=== PATIENT | female | born 1945 | race Caucasian/White ===

== ENCOUNTER → 2016-06-18 | Outpatient (CLI) | payer OTHER | END | disposition home or self-care (01) | LOC: C.LABPVFM 09:37 | PROVIDERS: ATTEND Family Medicine | DX: R39.9 Unspecified symptoms and signs involving the genitourinary system (principal) ==

== ENCOUNTER → 2017-03-22 | Outpatient (CLI) | payer OTHER ==
--- NOTE | 2017-03-22 15:09 | MAMMOGRAPHY REPORT ---
BILATERAL DIGITAL SCREENING MAMMOGRAM TOMOSYNTHESIS WITH CAD: 03/22/2017 CLINICAL HISTORY: Routine screening. Patient has no complaints. TECHNIQUE: Breast tomosynthesis in addition to standard 2D mammography was performed. Current study was also evaluated with a Computer Aided Detection (CAD) system. COMPARISON: Comparison is made to exams dated: 03/02/2016 mammogram, 02/26/2015 mammogram, 4 mammogram, 02/17/2013 mammogram - [facility], and 08/27/2006 mammogram. BREAST COMPOSITION: The tissue of both breasts is almost entirely fatty. FINDINGS: The parenchymal pattern is similar to prior mammograms. There are a few benign rim calcif ications and minimal vascular calcification in the breasts. No developing mass, architectural distor tion or cluster of suspicious microcalcifications is seen. IMPRESSION: ACR BI-RADS CATEGORY 2: BENIGN There is no mammographic evidence of malignancy. A 1 year screening mammogram is recommended. The pa tient will receive written notification of the results. Approximately 10% of breast cancers are not detected with mammography. A negative mammographic report should not delay biopsy if a clinically suggestive mass is present. Olga Solano M.D. ay/:03/22/2017 14:36:43 [employer] Crewmember: Omaira LOWERY(Vanessa)(M), [facility] letter sent: Normal 1/2 BI-RADS Code: ACR BI-RADS Category 2: Benign
== END | disposition home or self-care (01) ==
LOC: C.MAMM 09:14
PROVIDERS: ATTEND Family Medicine
DX: Z12.31 Encounter for screening mammogram for malignant neoplasm of breast (principal)

== ENCOUNTER → 2017-04-05 | Outpatient (CLI) | payer OTHER ==
[2017-04-05 12:46] LABS: BLOOD UREA NITROGEN 21 mg/dl (7-18); CALCIUM 9.2 mg/dl (8.5-10.1); CARBON DIOXIDE 34 mmol/L (21-32); CREATININE 0.75 mg/dl (0.60-1.20); GLUCOSE 115 mg/dl (70-99); POTASSIUM 4.8 mmol/L (3.5-5.1); SODIUM 137 mmol/L (136-145)
[2017-04-05 12:49] LABS: CHOLESTEROL 249 mg/dl (0-200); LDL CHOLESTEROL CALCULATED 152 mg/dl
== END | disposition home or self-care (01) ==
LOC: C.LABPVFM 17:45
PROVIDERS: ATTEND Nurse Practitioner
DX: I10 Essential (primary) hypertension (principal); E78.5 Hyperlipidemia, unspecified

== ENCOUNTER 2019-08-14 13:08 | Observation (INO) ==
[2019-08-14] MEDS ORDERED: OPTIRAY 320 125ml IV PRN (13:39)
[2019-08-14 13:50] LABS: Basophils # (auto) 0.04 K/uL (0-0.2); Basophils % (auto) 0.4 %; Eosinophils # (auto) 0.26 K/uL (0-0.5); Eosinophils % (auto) 2.8 %; Hematocrit (blood only) 47.2 % (37-47); Hemoglobin 14.8 g/dL (12.0-16.0); Immature Granulocytes # (auto) 0.03 K/uL (0.00-0.02); Immature Granulocytes % (auto) 0.3 %; Lymphocytes # (auto) 3.65 K/uL (1.2-3.4); Lymphocytes % (auto) 39.3 %; Mean Corpuscular Hemoglobin 30.5 pg (25-34); Mean Corpuscular Hgb Conc 31.4 g/dL (32-36); Mean Corpuscular Volume 97.3 fL (80-100); Mean Platelet Volume 11.2 fL (7.4-10.4); Monocytes # (auto) 0.88 K/uL (0.11-0.59); Monocytes % (auto) 9.5 %; Neutrophils # (auto) 4.42 K/uL (1.4-6.5); Neutrophils % (auto) 47.7 %; Platelet Count 370 K/uL (130-400); RDW Coefficient of Variation 13.2 % (11.5-14.5); Red Blood Count 4.85 M/uL (4.2-5.4); White Blood Count 9.28 K/uL (4.8-10.8)
--- NOTE | 2019-08-14 13:52 | CT Scan Report ---
CT head/brain wo con CLINICAL HISTORY: Stroke evaluation COMPARISON STUDY: No previous studies for comparison. TECHNIQUE: Axial CT of the brain is performed from the vertex to the skull base. IV contrast was not administered for this examination. A dose lowering technique was utilized adhering to the principles of ALARA. CT DOSE: FINDINGS: No intra or extra-axial mass lesions are visualized. There is no CT evidence of acute cortical infarc tion. There is no evidence of midline shift. There is no acute hemorrhage. No calvarial fractures ar e visualized. There are scattered white matter hypodensities likely on a small vessel basis. There is no evidence of pathologic ventricular dilatation. There is no evidence of acute sinusitis. There is a left maxillary sinus inflammatory polyp/retention cyst. IMPRESSION: No acute intracranial findings ACT 112: Negative or not required by law. Electronically signed by: Rohit Morales M.D. 08/14/2019 1:50 PM
--- NOTE | 2019-08-14 13:55 | XRay Report ---
XR chest 1V portable CLINICAL HISTORY: aphasia dyspnea COMPARISON STUDY: No previous studies for comparison. FINDINGS: Moderate cardiomegaly., Pulmonary vasculature. Potential nodular densities in the left uppe r as well as left midlung region. IMPRESSION: 1. Mild congestive heart failure. 2. Potential superimposed nodular densities lateral aspect left upper lobe and left midlung. 3. CT study of the chest is recommended to exclude any possibility of metastatic change. ACT 112: Negative or not required by law. The above report was generated using voice recognition software. It may contain grammatical, syntax or spelling errors. Electronically signed by: Serafin Coughlin M.D. 08/14/2019 1:54 PM
--- NOTE | 2019-08-14 13:56 | CT Scan Report ---
CT angio head w con CLINICAL HISTORY: Stroke evaluation Aphasia, HEADACHE TECHNIQUE: CT angiography of the head was performed in a dynamic helical fashion during intravenous a dministration of 120 cc of Optiray 320. MIP imaging was performed. A dose lowering technique was util ized adhering to the principles of ALARA. CT DOSE: COMPARISON STUDY: No previous studies for comparison. FINDINGS: There are no lesion suspicious for aneurysm. There are no major intracranial branch occlusi ons. The dural venous sinuses appear patent. There are mild diffuse atheromatous changes within the r ight posterior cerebral artery, and minimal atheromatous irregularity of the right A1 segment. IMPRESSION: 1. Minor intracranial atheromatous changes. 2. No evidence of major intracranial branch occlusion 3. No evidence of aneurysm ACT 112: Negative or not required by law. Electronically signed by: Rohit Morales M.D. 08/14/2019 1:55 PM
--- NOTE | 2019-08-14 14:02 | CT Scan Report ---
CT angio neck with con CLINICAL HISTORY: Stroke evaluation aphasia COMPARISON STUDY: No previous studies for comparison. TECHNIQUE: CT angiography was performed from the aortic arch to the skull base. MIP imaging was perfo rmed. The patient was scanned in a dynamic helical fashion during intravenous administration of 120 c c of Optiray 320. A dose lowering technique was utilized adhering to the principles of ALARA. CT DOSE: 1197.51 mGy.cm Technique: CT angiogram of the carotid and vertebral arteries was obtained using intravenous contrast and 3-D reconstruction. NASCET criteria was utilized. Findings: The right carotid revealed no evidence of aneurysm and no evidence of dissection. There is no evidenc e of hemodynamic significant stenosis. The left carotid revealed no evidence of hemodynamic significant stenosis. There is no evidence of an eurysm. There is no evidence of dissection. Note is made of a retropharyngeal course of both internal carotids. There is no evidence of hemodynamically significant vertebral stenosis. There is no evidence of verte bral dissection. IMPRESSION: No evidence of hemodynamically significant carotid or vertebral artery stenosis. No evidence of disse ction. ACT 112: Negative or not required by law. Electronically signed by: Rohit Morales M.D. 08/14/2019 2:01 PM
[2019-08-14 14:04] LABS: Partial Thromboplastin Ratio 1.1; Partial Thromboplastin Time 29.5 Seconds (21.0-31.0); Prothrombin Time 10.2 Seconds (9.0-12.0)
[2019-08-14 14:12] LABS: Alanine Aminotransferase 26 U/L (12-78); Albumin Level 3.8 gm/dl (3.4-5.0); Aspartate Aminotransferase 20 U/L (15-37); BUN Creatinine Ratio 24.6 (10-20); Blood Urea Nitrogen 21 mg/dl (7-18); Calcium 9.1 mg/dl (8.5-10.1); Carbon Dioxide 34 mmol/L (21-32); Chloride 103 mmol/L (98-107); Creatinine Clr Calc Pharmacy 68.3 ml/min; Est GFR (African American) 76.6; Est GFR (Non-African American) 66.1; Glucose 97 mg/dl (70-99); Magnesium 2.3 mg/dl (1.8-2.4); Potassium 4.8 mmol/L (3.5-5.1); Sodium 138 mmol/L (136-145)
[2019-08-14 14:16] LABS: Albumin Globulin Ratio 0.9 (0.9-2); Alkaline Phosphatase 106 U/L (45-117); Bilirubin,Total 0.2 mg/dl (0.2-1); Globulin 4.2 gm/dl (2.5-4.0); Troponin I < 0.015 ng/ml (0-0.045)
[2019-08-14] MEDS ORDERED: LABETALOL HCL IV 5 MG/ML 20ML IV STA (14:17)
[2019-08-14] MEDS ORDERED: ASPIRIN CHEW 324 MG PO STA (14:17)
--- NOTE | 2019-08-14 14:44 | History & Physical Report ---
Date of Service August 14, 2019 Assessment & Plan (1) Stroke-like episode: Patient with unilateral findings consistent with possible atypical migraine versus stroke. Patient had CT angiogram of her head neck and regular plain CT scan of the brain. These were negative for any abnormalities. Patient was given antihypertensive medications in the ER remains with a headache she will be observed in our facility for an MRI scan a echocardiogram and will have some pain control attempting to help her headache.Neurology consult be undertaken Patient with hemoglobin A1c and cholesterol panel done in the morning however patient says she typically is not a pill taker and may not be interested in Cholesterol lowering medications (2) Depression: Patient continues on Celexa (3) DVT prophylaxis: Lovenox for DVT prevention History of Present Illness Primary Care Provider: Faye Hanson MD This patient was in her usual state of health up until this morning when she developed a headache around 9 AM that it was fairly significant. The patient then states she had some Left eye bright white lines only present in her left eye Not present In the right eye to the left part of her visual field. Patient states she took a phone call from a local bank where she was having difficulty with jumbling of her words, Asked her to take her to her primary care office where they phoned first and then were directed to the hospital.Patient denies having any changes in gross motor strength or fine motor skills such as what would be required to dress herself to come to the hospital.The patient has resolution of the jumbling of the words in the visual field changes however she still has a significant headache. In the emergency department she had a stroke alert called at which time thrombolytics were not recommended due to timing and the patient was given some antihypertensives of labetalol. Initial imaging of her brain was without regard for hemorrhage or stroke vascular abnormalities or dissection of any kind. The patient was given an aspirin. Patient has a family history of stroke in her mother, she has known bad cholesterol but is "not a pill taker" and is no tobacco history.Contrary to her med rec she does not take metoprolol for hypertension Allergies Allergy/AdvReac Type Severity Reaction Status Date / Time No Known Drug Allergies Allergy Verified 08/14/19 13:58 Home Medications Home Medications Medication Instructions Recorded Confirmed Type omega 4-fhu-euj-fish oil [Fish Oil] 1 cap PO QAM 03/04/19 06/01/20 History metoprolol succinate 25 mg capsule 25 mg PO DAILY #90 ea 04/05/19 08/14/19 Rx sprinkle, ext. release 24 hr citalopram [Celexa] 40 mg PO QAM 08/14/19 08/14/19 History ibuprofen-diphenhydramine cit 2 cap PO HS 08/14/19 08/14/19 History [Ibuprofen PM] Past Med/Surg History Medical History (Updated 08/14/19 @ 15:24 by Pepe Mckeon MD) Abnormal nasal septum Depression Obesity Surgical History History of cataract surgery BL History of exploratory laparotomy History of pancreatic surgery had turmor removed History of total abdominal hysterectomy with removal of ovary(s) Hx of bladder repair surgery Hx of hysterectomy ovaries remain Hx of varicose vein ligation and stripping both legs Family History (Updated 07/07/19 @ 08:51 by Larry Rai) Mother Stroke Myocardial infarction Father Stroke Denies family history of Ovarian cancer Prostate cancer Breast cancer Colorectal cancer Social History (Updated 04/05/19 @ 13:08 by Mari Reynoso) Preferred Language: Tajik Communication Ability: Effective Combat Systems Officer Required: No Beliefs That Will Affect Care: None Current Living Situation: Spouse current occupational status: retired Other Information That Helps Us Care for You: No Feels Safe at Home: Yes Safety Concerns: Feels Safe At This Time Smoking Status: Never smoker Second Hand Exposure: No ; Hx Alcohol Use: No Hx Substance Use: No caffeine: Yes (coffee) Dental Care, Regularly: Yes Physical Activity Frequency: Does not Exercise Seatbelt Use: always Sunscreen Use: No Review of Systems Review of Systems: Mild distress and fatigue no headache, blurry or double vision no speech or swallowing issues no chest pain, pressure or palpitations no shortness of breath, cough or wheezes no abdominal pain, nausea or vomiting, diarrhea or constipation no dysuria, hematuria or frequency no focal joint pain or swelling no back pain, CVA tenderness or radicular pain no bruising, bleeding or rashes no focal signs of weakness or numbness or altered sensation no complaints or anxiety or depression Physical Exam Physical Exam: The patient appeared well nourished and normally developed. Vital signs as documented. Head exam is normocephalic atraumatic no scleral icterus Neck is without JVD, thyromegaly, or carotid bruits. Lungs are clear to auscultation, no focal loss of breath sounds Cardiac exam, Rhythm is regular.. No murmurs, rubs or gallops. Abdominal exam reveals normal bowel sounds, soft non tender, no masses Extremities are nonedematous and both pedal pulses are normal. Neurologic exam is alert and oriented, no focal loss of strength or sensation Skin is without bruises or rashes Psychologically is without concerns for anxiety or depression Results & Data Results & Data ([facility]) Vital Signs (Past 12 Hours) Vital Signs 08/15/2019 CT head impression No acute intracranial findings CT angiogram head neck Impression Minor intracranial atheromatous change.No evidence of major intracranial branch occlusion no evidence of aneurysm, Neck angiogram shows no evidence of hemodynamically significant carotid or vertebral artery stenosis or dissection EKG shows normal sinus rhythm, Without any changes Temp Pulse Resp BP Pulse Ox 08/14/19 14:30 61 17 177/98 H 95 08/14/19 14:10 64 21 193/91 H 94 08/14/19 14:01 70 20 223/102 H 91 08/14/19 13:53 77 26 H 207/94 H 94 08/14/19 13:19 97.9 F 68 18 210/103 H 93 PG Care Time/CCT Total # of Minutes Spent Total Time Spent with Patient: Total time spent is greater than 50% in coordination of care (as documented) at patient's floor/unit and/or counseling patient: Coding Level of Care Code 78044 OBS Care - Level 3 Diagnoses Stroke-like episode I63.9 Depression F32.9 DVT prophylaxis Z29.9
--- NOTE | 2019-08-14 15:18 | Emergency Department Note ---
Impression & Plan Transient cerebral ischemia, Stroke-like episode, Hypertension ED Provider Note NAME: RONNIE JONES AGE: 73 SEX: F : 1945 ARRIVES VIA: Walk-In INFORMANT: Patient ED PROVIDER(S): Janak Vazquez DO CHIEF COMPLAINT: Headache and aphasia HPI: Patient is a 73-year-old female presents the ER for severe headache which started around 9 AM. It has been persistent since then. She has been seeing white lines. Following this around 11 AM for about 1/2-hour she was unable to talk. She denies any weakness or numbness in her arms or legs. No other symptoms. She does note that she has been mildly short of breath for the past month. She notes that all of her symptoms have gone away at this time with the exception of the headache. Headache is located in her temples. She notes that light does make the headache slightly worse. ROS: See above HPI for pertinent positives & negatives. A total of 10 systems reviewed and were otherwise negative. PAST MEDICAL HISTORY:See Below PAST SURGICAL HISTORY:See Below FAMILY HISTORY:See Below SOCIAL HISTORY:See Below HOME MEDICATIONS:See Below ALLERGIES:See Below VITALS:See Below PHYSICAL EXAMINATION: GENERAL: Sitting up in bed, alert, well appearing, well nourished, no distress, non-toxic EYE EXAM: normal conjunctiva. PERRL and EOM's intact. OROPHARYNX: no exudate, no erythema, lips, buccal mucosa, and tongue normal and mucous membranes are moist NECK: supple, no nuchal rigidity, no adenopathy, non-tender LUNGS: Clear to auscultation. Normal chest wall mechanics HEART: no murmurs, S1 normal and S2 normal ABDOMEN: abdomen soft, non-tender, normo-active bowel sounds, no masses, no rebound or guarding. BACK: Back is symmetrical on inspection and there is no deformity, no midline tenderness, no CVA tenderness. SKIN: no rashes and no bruising UPPER EXTREMITIES: upper extremities are grossly normal. LOWER EXTREMITIES: No pitting edema. NEURO EXAM: Normal sensorium, cranial nerves II-XII intact, normal speech, no weakness of arms, no weakness of legs. No drift. Finger to nose intact. Gross sensation intact. MEDICAL DECISION MAKING: Patient is a 73-year-old female that presents the ER for headache. Symptoms started around 9 AM this morning with a severe headache and some white line throughout her vision. At 11 she was unable to talk which lasted for about 1/2- hour and then resolved. Upon presentation neurologic exam was completely intact. Blood pressure was 210. Stroke alert was called. Discussed with the [facility] tele-stroke neurologist. Patient is currently out of the window and they recommended aspirin and fluids admission as well as treatment of her high blood pressure at this time as long as the CT angios were clean. Labs show no significant leukocytosis or anemia. INR was unremarkable. BMP with slightly elevated BUN. LFTs bilirubin and troponin were negative. CT of the head as well as CT Angio of the head and neck were fairly unremarkable. Patient was given IV labetalol. Aspirin and fluids. Blood pressure was lowered from 210 to 170. Patient was updated at bedside and admitted to the hospital for possible TIA versus hypertensive emergency. Triage Nursing notes reviewed. Prior medical records reviewed Vital Signs: reviewed and remarkable for hypertension Differential diagnosis: Differential Diagnosis includes but is not limited to ischemic Stroke, hemorrhagic stroke, bells palsy, mass, neoplasm, migraine headache, seizure, subarachnoid hemorrhage, TIA, and transient global amnesia. ER treatment provided: See below Diagnostics interpreted by me: ECG: Sinus rhythm rate 73 Normal axis No PVCs DWI in the septal leads Normal QTC Cardiac Monitoring: An order was placed for continuous cardiac monitoring. The monitor shows a rate of 68 with sinus rhythm. Laboratory studies: As stated above and show below. Imaging studies: Portable AP upright 1 view of the chest shows congestive changes. CT of the head was negative. CT angios of the head and neck showed no large vessel stenosis. Consultation(s): Discussed with hospitalist Dr. aDnnie James ED COURSE: Procedures: none Critical Care: I have personally spent 32 minutes of critical care time in the direct management of this patient. This includes bedside care, interpretation of diagnostic studies, and testing, discussion with consultants, patient, and family members, and other required patient management activities. This 32 minutes is in excess of all separately billable procedures. Past Med/Surg History Medical History (Updated 08/14/19 @ 16:50 by Kay Alegria MD) Abnormal nasal septum Depression Obesity Surgical History History of cataract surgery BL History of exploratory laparotomy History of pancreatic surgery had turmor removed History of total abdominal hysterectomy with removal of ovary(s) Hx of bladder repair surgery Hx of hysterectomy ovaries remain Hx of varicose vein ligation and stripping both legs Family History (Updated 07/07/19 @ 08:51 by Larry Rai) Mother Stroke Myocardial infarction Father Stroke Denies family history of Ovarian cancer Prostate cancer Breast cancer Colorectal cancer Social History (Updated 04/05/19 @ 13:08 by Mari Reynoso) Preferred Language: Bulgarian Communication Ability: Effective Staff Scientist Required: No Beliefs That Will Affect Care: None Current Living Situation: Spouse current occupational status: retired Other Information That Helps Us Care for You: No Feels Safe at Home: Yes Safety Concerns: Feels Safe At This Time Smoking Status: Never smoker Second Hand Exposure: No ; Hx Alcohol Use: No Hx Substance Use: No caffeine: Yes (coffee) Dental Care, Regularly: Yes Physical Activity Frequency: Does not Exercise Seatbelt Use: always Sunscreen Use: No Allergies Allergies Allergy/AdvReac Type Severity Reaction Status Date / Time No Known Drug Allergies Allergy Verified 08/14/19 13:58 Home Meds Home Medications Medication Instructions Recorded Confirmed omega 3-ivb-xxn-fish oil [Fish Oil] 1 cap PO QAM 05/16/18 08/14/19 citalopram [Celexa] 40 mg PO QAM 08/14/19 08/14/19 ibuprofen-diphenhydramine cit 2 cap PO HS 08/14/19 08/14/19 [Ibuprofen PM] Previous Rx's Medication Instructions Recorded metoprolol succinate 25 mg capsule 25 mg PO DAILY #90 ea 04/05/19 jose juan, ext. release 24 hr Results & Data (ED) Vital Signs Vital Signs - 24 hr 08/14/19 13:19 08/14/19 13:53 08/14/19 14:01 Temperature 36.6 C Temperature Source Oral Pulse Rate 68 77 70 Pulse Rate from SpO2 Sensor 76 69 Respiratory Rate 18 26 H 20 Respiratory Effort / Characteristics Non-Labored Spontaneous Respiratory Depth Normal Respiratory Pattern Regular Blood Pressure 210/103 H 207/94 H 223/102 H Blood Pressure Mean 138 113 150 Blood Pressure Position Sitting Pulse Oximetry 93 94 91 Oxygen Delivery Method Room Air Room Air Room Air Oxygen Flow Rate Sepsis Recent Fever Within 48 Hours No Sepsis New/Unexplained Change in Mental Status No Sepsis Action Taken by Nursing No Action Required Oxygen Flow Rate - Titration Pulse Oximetry Post Tiitration 08/14/19 14:10 08/14/19 14:30 Temperature Temperature Source Pulse Rate 64 61 Pulse Rate from SpO2 Sensor 66 Respiratory Rate 21 17 Respiratory Effort / Characteristics Respiratory Depth Respiratory Pattern Blood Pressure 193/91 H 177/98 H Blood Pressure Mean 135 134 Blood Pressure Position Pulse Oximetry 94 95 Oxygen Delivery Method Room Air Nasal Cannula Oxygen Flow Rate 2 Sepsis Recent Fever Within 48 Hours Sepsis New/Unexplained Change in Mental Status Sepsis Action Taken by Nursing Oxygen Flow Rate - Titration 2 Pulse Oximetry Post Tiitration 96 Laboratory Data Result diagrams: 08/14/19 13:38 08/14/19 13:38 Lab Results 08/14/19 08/14/19 08/14/19 Range/Units 13:33 13:38 13:38 WBC 9.28 (4.8-10.8) K/uL RBC 4.85 (4.2-5.4) M/uL Hgb 14.8 (12.0-16.0) g/dL Hct 47.2 H (37-47) % MCV 97.3 (80-100) fL MCH 30.5 (25-34) pg MCHC 31.4 L (32-36) g/dL RDW Std Deviation 47.0 H (36.4-46.3) fL RDW Coeff of Marky 13.2 (11.5-14.5) % Plt Count 370 (130-400) K/uL MPV 11.2 H (7.4-10.4) fL Immature Gran % (Auto) 0.3 % Neut % (Auto) 47.7 % Lymph % (Auto) 39.3 % [place] % (Auto) 9.5 % Eos % (Auto) 2.8 % Baso % (Auto) 0.4 % Immature Gran # (Auto) 0.03 H (0.00-0.02) K/uL Neut # (Auto) 4.42 (1.4-6.5) K/uL Lymph # (Auto) 3.65 H (1.2-3.4) K/uL [place] # (Auto) 0.88 H (0.11-0.59) K/uL Eos # (Auto) 0.26 (0-0.5) K/uL Baso # (Auto) 0.04 (0-0.2) K/uL PT 10.2 (9.0-12.0) Seconds INR 1.0 (0.9-1.1) APTT 29.5 (21.0-31.0) Seconds PTT Ratio 1.1 Sodium (136-145) mmol/L Potassium (3.5-5.1) mmol/L Chloride (98-107) mmol/L Carbon Dioxide (21-32) mmol/L Anion Gap (3-11) BUN (7-18) mg/dl Creatinine (0.6-1.2) mg/dl Est Cr Clr Drug Dosing ml/min Est GFR ( Amer) Est GFR (Non-Af Amer) BUN/Creatinine Ratio (10-20) Glucose (70-99) mg/dl POC Glucose 103 H (70-99) mg/dl Calcium (8.5-10.1) mg/dl Magnesium (1.8-2.4) mg/dl Total Bilirubin (0.2-1) mg/dl AST (15-37) U/L ALT (12-78) U/L Alkaline Phosphatase (45-117) U/L Troponin I (0-0.045) ng/ml Total Protein (6.4-8.2) gm/dl Albumin (3.4-5.0) gm/dl Globulin (2.5-4.0) gm/dl Albumin/Globulin Ratio (0.9-2) 08/14/19 Range/Units 13:38 WBC (4.8-10.8) K/uL RBC (4.2-5.4) M/uL Hgb (12.0-16.0) g/dL Hct (37-47) % MCV (80-100) fL MCH (25-34) pg MCHC (32-36) g/dL RDW Std Deviation (36.4-46.3) fL RDW Coeff of Marky (11.5-14.5) % Plt Count (130-400) K/uL MPV (7.4-10.4) fL Immature Gran % (Auto) % Neut % (Auto) % Lymph % (Auto) % [place] % (Auto) % Eos % (Auto) % Baso % (Auto) % Immature Gran # (Auto) (0.00-0.02) K/uL Neut # (Auto) (1.4-6.5) K/uL Lymph # (Auto) (1.2-3.4) K/uL [place] # (Auto) (0.11-0.59) K/uL Eos # (Auto) (0-0.5) K/uL Baso # (Auto) (0-0.2) K/uL PT (9.0-12.0) Seconds INR (0.9-1.1) APTT (21.0-31.0) Seconds PTT Ratio Sodium 138 (136-145) mmol/L Potassium 4.8 (3.5-5.1) mmol/L Chloride 103 (98-107) mmol/L Carbon Dioxide 34 H (21-32) mmol/L Anion Gap 2.0 L (3-11) BUN 21 H (7-18) mg/dl Creatinine 0.86 (0.6-1.2) mg/dl Est Cr Clr Drug Dosing 68.3 ml/min Est GFR ( Amer) 76.6 Est GFR (Non-Af Amer) 66.1 BUN/Creatinine Ratio 24.6 H (10-20) Glucose 97 (70-99) mg/dl POC Glucose (70-99) mg/dl Calcium 9.1 (8.5-10.1) mg/dl Magnesium 2.3 (1.8-2.4) mg/dl Total Bilirubin 0.2 (0.2-1) mg/dl AST 20 (15-37) U/L ALT 26 (12-78) U/L Alkaline Phosphatase 106 (45-117) U/L Troponin I < 0.015 (0-0.045) ng/ml Total Protein 8.0 (6.4-8.2) gm/dl Albumin 3.8 (3.4-5.0) gm/dl Globulin 4.2 H (2.5-4.0) gm/dl Albumin/Globulin Ratio 0.9 (0.9-2) Administered Medications Discontinued Medications Aspirin (Aspirin) 324 mg PO NOW STA Stop: 08/14/19 14:18 Last Admin: 08/14/19 14:23 Dose: 324 mg Documented by: [id number] Ioversol (Optiray 320 125ml) 120 ml IV ONCE PRN PRN Reason: Interaction Checking Stop: 08/18/19 13:38 Last Admin: 08/14/19 13:39 Dose: 120 ml Documented by: [id number] Labetalol HCl (Normodyne) 10 mg IV NOW STA Stop: 08/14/19 14:18 Last Admin: 08/14/19 14:23 Dose: 10 mg Documented by: [id number] Cosigned by: [id number] Discharge Plan Visit Data *Final* Discharge Date/Time: 08/14/19 15:41 Chief Complaint: Neuro Symptoms/Deficit Stated Complaint: COULDN'T GET WORDS TOGETHER,HEADACHE ED Provider: Janak Vazquez Discharge Problem: Transient cerebral ischemia, Stroke-like episode, Hypertension Patient Disposition: Admitted As Inpatient Discharge Instructions Interventions: ED Discharge Assessment Last Done: 08/14/19 15:41 Discharge Problem: Transient cerebral ischemia Qualifiers: Transient cerebral ischemia type: unspecified Qualified Code(s): G45.9 - Transient cerebral ischemic attack, unspecified Hypertension Qualifiers: Hypertension type: unspecified Qualified Code(s): I10 - Essential (primary) hypertension
[2019-08-14] MEDS ORDERED: ONDANSETRON INJ 2 MG/ML 2 ML VIAL IV PRN (16:04)
[2019-08-14] MEDS ORDERED: KETOROLAC TROMETHAMINE 15 MG/ML VIAL IV PRN (16:04)
[2019-08-14] MEDS ORDERED: PHARMACIST DISCHARGE MED REC CONSULT PRN (16:04)
[2019-08-14] MEDS ORDERED: cloNIDine HCL 0.1 MG TAB PO PRN (16:04)
[2019-08-14] MEDS ORDERED: ACETAMINOPHEN 325 MG TAB PO PRN (16:04)
[2019-08-14] MEDS ORDERED: ALUMINUM/MAGNESIUM SUSP 30 ML UDC PO PRN (16:04)
[2019-08-14] MEDS ORDERED: MoRPHine SULFATE 2 MG/ML CARP IV PRN (16:04)
--- NOTE | 2019-08-14 16:17 | Neurology Consultation ---
Date of Consultation August 14, 2019 Assessment & Plan (1) Hypertension: (2) Stroke-like episode: Kika Vasquez is a 73 yo woman w/ PMH of hypertension, hyperlipidemia, depression/anxiety, GERD, and h/o headaches who p/t [facility] with severe headache, transient visual change and transient word finding difficulty. # Headache a/w word finding difficulty and transient positive visual phenomenon: in setting of severe HTN, most likely HTNsive urgency (MRI pending to r/o stroke). No current neurological symptoms aside from having headache since her blood pressure has been better controlled. Headache frequency likely complicated by medication overuse headache due to frequent Tylenol and ibuprofen usage. -Can complete TIA work-up with A1c, LDL, TTE though this is less likely the cause of her presentation -Would slowly lower blood pressure over next 24 hours; defer to primary team to start alternative BP agent as HR in the 50s after being given labetalol - Serial migraine cocktails: toradol/Benadryl/compazine q8h, IVFs, and magnesium 2g IV q12h x2 doses - Consider valproic acid 500mg IV q8h if no improvement in headache - If no stroke or mass lesions noted on MRI brain, would give dexamethasone 1g IV followed by Medrol taper and advise her to discontinue further ibuprofen PM and tylenol (if BP is still an issue, could also use zyprexa 2.5mg qhs x 5 days as a cycle breaker) - MRI pending, no vessel abnormalities, including CVST noted on vessel imaging - she will need to start a daily preventative medication for her headaches given the frequency - would check B12, ESR/CRP, TSH also to r/o metabolic causes to word finding difficulty # Diffuse intra-cranial atherosclerosis: She has a history of hyperlipidemia but is not currently on any medications. -Would recommend starting atorvastatin 40 mg nightly Thank you for this interesting consult. Please call with any questions. (3) Headache: (4) Hyperlipidemia: History of Present Illness Attending Physician: Pepe Mckeon MD History of Present Illness Kika Vasquez is a 73 yo woman w/ PMH of hypertension, hyperlipidemia, depression/anxiety, GERD, and h/o headaches who p/t [facility] with severe headache, transient visual change and transient word finding difficulty. 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 She reports that she felt like her normal self when she first woke up on that around 10:30 AM, started to get a severe throbbing headache that was preceded by a brief, transient flash of light. A little bit after this headache started, she started to have word finding difficulty while she was talking on the phone and with her . She reports that she has never had something like this in the past, so she presented to the emergency department for evaluation. In terms of all headaches, she describes that she will have a headache every other day on average that is located on her vertex, is not associated with nausea/vomiting/photophobia/phonophobia, and that she will take an Aleve as needed. She does note that she takes ibuprofen PM every night to help her with sleep. Denies taking any daily medications for headache. Current headache is similar in characteristic and located in her vertex primarily with some radiation to the bitemporal region, however is more severe in intensity (usually 3-4/10 versus 9/10 today). She does note that she has had 2 other severe headaches in the last week, however neither were associated with word finding difficulty. In the ED, she was afebrile, BP 210/103, heart rate 68, satting 93% on room air. Labs notable for WBC 9.28, hemoglobin 14.8, platelets 370, INR 1.0, CMP unremarkable with BUN mildly elevated 21 and creatinine 0.86, glucose 97, calcium/magnesium within normal, troponin negative. Imaging independently reviewed. CT head shows no hemorrhage or hypodensity. CTA head and neck shows no LDL, high-grade stenosis, aneurysm; she does have a right RN GYN and mild diffuse intracranial atherosclerosis. MRI brain pending. All symptoms have resolved upon evaluation this afternoon except for residual headache. In the ED, she received labetalol 10mg IV for HTN and aspirin 324mg. Allergies Allergy/AdvReac Type Severity Reaction Status Date / Time No Known Drug Allergies Allergy Verified 08/14/19 13:58 Home Medications Home Medications Medication Instructions Recorded Confirmed Type omega 8-raj-eca-fish oil [Fish Oil] 1 cap PO QAM 05/16/18 08/14/19 History metoprolol succinate 25 mg capsule 25 mg PO DAILY #90 ea 04/05/19 08/14/19 Rx sprinkle, ext. release 24 hr citalopram [Celexa] 40 mg PO QAM 08/14/19 08/14/19 History ibuprofen-diphenhydramine cit 2 cap PO HS 08/14/19 08/14/19 History [Ibuprofen PM] Patient History Medical History Abnormal nasal septum Depression Obesity Surgical History History of cataract surgery BL History of exploratory laparotomy History of pancreatic surgery had turmor removed History of total abdominal hysterectomy with removal of ovary(s) Hx of bladder repair surgery Hx of hysterectomy ovaries remain Hx of varicose vein ligation and stripping both legs Family History Mother Stroke Myocardial infarction Father Stroke Denies family history of Ovarian cancer Prostate cancer Breast cancer Colorectal cancer Social History Preferred Language: Japanese Communication Ability: Effective Animal Services Officer Required: No Beliefs That Will Affect Care: None Current Living Situation: Spouse current occupational status: retired Other Information That Helps Us Care for You: No Feels Safe at Home: Yes Safety Concerns: Feels Safe At This Time Smoking Status: Never smoker Second Hand Exposure: No ; Hx Alcohol Use: No Hx Substance Use: No caffeine: Yes (coffee) Dental Care, Regularly: Yes Physical Activity Frequency: Does not Exercise Seatbelt Use: always Sunscreen Use: No Review of Systems Review of Systems: 14 point review of systems completed and negative except as in HPI. Exam (Neuro) Physical Exam: General Exam: GEN: NAD, sitting down in examination bed. HEENT: No conjunctival injection, no rhinorrhea. CV: RRR on monitor, no significant edema. PULM: Nonlabored respirations on room air. Neuro Exam: MS: Awake and Alert. Oriented to person, place, and date. Speech fluent and appropriate without dysarthria or paraphasic errors. Language intact including naming, comprehension, repetition. Cognition and memory grossly intact. Attention intact. No neglect. CN: Visual jefferson full. No extinction to double simultaneous stimuli. Normal fundoscopic exam. PERRLA OU. EOMI without nystagmus. Facial sensation intact to LT. Facial muscles full and symmetric. Hearing intact to conversation. Uvula midline with symmetric palatal elevation. SCMs and shoulder shrug normal. Tongue midline. MOTOR: Normal bulk and tone. No pronator drift. BUE strength 5/5 at deltoids, biceps, triceps, wrist flexors and extensors, and finger flexors bilaterally. BLE strength 5/5 at iliopsoas, hamstrings, quadriceps, tibialis anterior, and gastrocnemius bilaterally. REFLEXES: 1+ at biceps, triceps, brachioradialis, 1+ patella, and trace Achilles bilaterally. Flexor plantar responses bilaterally. SENSORY: Intact to LT/vibration/temperature throughout, no extinction to double simultaneous stimuli. COORDINATION: No dysmetria or ataxia on [id number] bilaterally. Normal Navjot bilaterally. GAIT: Normal gait and armswing. Normal Romberg NIH STROKE SCALE 1A. Level of Consciousness (0-3) = 0 1B. LOC Questions (0-2) = 0 1C. LOC Commands (0-2) = 0 2. Best Horizontal Gaze (0-2) = 0 3. Visual Jefferson (0-3) = 0 4. Facial Palsy (0-3) = 0 5. Motor Arm Right (0-4) = 0 Left (0-4) = 0 6. Motor Leg Right (0-4) = 0 Left (0-4) = 0 7. Limb Ataxia (0-2) = 0 8. Sensory (0-2) = 0 9. Best Language (0-3) = 0 10. Dysarthria (0-2) = 0 11. Extinction and Inattention (0-2) = 0 NIHSS TOTAL = 0 Results & Data ([facility]) Vital Signs (Past 12 Hours) Vital Signs Temp Pulse Pulse Resp BP BP Pulse Ox 08/14/19 15:59 36.5 C 56 L 19 169/88 H 93 08/14/19 15:37 81 18 173/98 H 98 08/14/19 14:30 61 17 177/98 H 95 08/14/19 14:10 64 21 193/91 H 94 08/14/19 14:01 70 20 223/102 H 91 08/14/19 13:53 77 26 H 207/94 H 94 08/14/19 13:19 36.6 C 68 18 210/103 H 93 PG Care Time/CCT Total # of Minutes Spent Total Time Spent with Patient: Total time spent is greater than 50% in coordination of care (as documented) at patient's floor/unit and/or counseling patient: Coding Level of Care Code 06675 Initial Inpt Care Lvl 3 Diagnoses Hypertension I10 Hypertension type: unspecified Stroke-like episode I63.9 Headache R51 Hyperlipidemia E78.5 (1) Hypertension Hypertension type: unspecified Qualified Code(s): I10 - Essential (primary) hypertension
[2019-08-14] MEDS ORDERED: [UNRECOGNIZED DRUG - OTHER] PO SCH (21:00)
[2019-08-15 06:37] LABS: Basophils # (auto) 0.02 K/uL (0-0.2); Basophils % (auto) 0.3 %; Eosinophils # (auto) 0.22 K/uL (0-0.5); Hematocrit (blood only) 45.9 % (37-47); Hemoglobin 14.6 g/dL (12.0-16.0); Immature Granulocytes # (auto) 0.01 K/uL (0.00-0.02); Immature Granulocytes % (auto) 0.1 %; Lymphocytes # (auto) 3.47 K/uL (1.2-3.4); Lymphocytes % (auto) 47.8 %; Mean Corpuscular Hemoglobin 30.7 pg (25-34); Mean Corpuscular Hgb Conc 31.8 g/dL (32-36); Mean Corpuscular Volume 96.4 fL (80-100); Mean Platelet Volume 11.3 fL (7.4-10.4); Monocytes # (auto) 0.57 K/uL (0.11-0.59); Monocytes % (auto) 7.9 %; Neutrophils # (auto) 2.97 K/uL (1.4-6.5); Neutrophils % (auto) 40.9 %; Platelet Count 351 K/uL (130-400); RDW Coefficient of Variation 13.2 % (11.5-14.5); RDW Standard Deviation 46.5 fL (36.4-46.3); Red Blood Count 4.76 M/uL (4.2-5.4); White Blood Count 7.26 K/uL (4.8-10.8)
[2019-08-15 06:49] LABS: Estimated Average Glucose 146 mg/dl; Hemoglobin A1C 6.7 % (4.5-5.6)
--- NOTE | 2019-08-15 06:53 | Magnetic Resonance Report ---
MR brain wo con HISTORY: stroke like symptoms TECHNIQUE: Multiplanar multisequence MRI of the brain was performed without the use of contrast. COMPARISON STUDY: None. FINDINGS: There are no areas of restricted diffusion to suggest acute infarction. The midline structu res are intact. The paranasal sinuses are clear. The mastoid air cells are clear. The ventricles and sulci are within normal limits for age. There is no mass, hematoma, midline shift. The major vascular flow-voids at the skull base are well maintained. IMPRESSION: No acute intracranial abnormality. Age-related atrophy and chronic small vessel change. ACT 112: Negative or not required by law. The above report was generated using voice recognition software. It may contain grammatical, syntax or spelling errors. Electronically signed by: Serafin Coughlin M.D. 08/15/2019 6:52 AM
[2019-08-15 07:03] LABS: Calcium 8.7 mg/dl (8.5-10.1); Creatinine Clr Calc Pharmacy 70.1 ml/min; Est GFR (African American) 79.9; Potassium 4.4 mmol/L (3.5-5.1)
[2019-08-15] MEDS: MAGNESIUM SULFATE / D5W 1 GM/100 ML BAG IV SCH ×2 (08:18→10:28)
[2019-08-15] MEDS ORDERED: ENOXAPARIN INJ 40 MG/0.4 ML SYR SQ SCH (09:00)
[2019-08-15] MEDS ORDERED: CITALOPRAM 40 MG TAB PO SCH (09:00)
[2019-08-15] MEDS ORDERED: METOPROLOL SUCC 25MG EXT REL TAB PO SCH (09:00)
[2019-08-15] MEDS ORDERED: ASPIRIN 81 MG ECTAB PO SCH (09:00)
[2019-08-15] MEDS ORDERED: OMEGA-3 (PURIFIED FISH OIL) 1 GM CAP PO SCH (09:00)
[2019-08-15] MEDS ORDERED: STROKE PATIENT DISCHARGE STA (10:46)
--- NOTE | 2019-08-15 11:03 | XCELERA ---
[id number]
--- NOTE | 2019-08-15 11:46 | Electrocardiogram Report ---
Test Reason : Blood Pressure : / mmHG Vent. Rate : 073 BPM Atrial Rate : 073 BPM P-R Int : 148 ms QRS Dur : 088 ms QT Int : 390 ms P-R-T Axes : 060 080 069 degrees QTc Int : 429 ms Normal sinus rhythm Normal ECG When compared with ECG of 19-OCT-2018 11:42, No significant change was found Confirmed by Frank Clinton ([id number]) on 08/15/2019 11:45:48 AM Referred By: REFERRED SELF Confirmed By:Frank Clinton
--- NOTE | 2019-08-15 17:42 | Discharge Summary ---
Date of Service August 15, 2019 Admission HPI Per Admitting Provider This patient was in her usual state of health up until this morning when she developed a headache around 9 AM that it was fairly significant. The patient then states she had some Left eye bright white lines only present in her left eye Not present In the right eye to the left part of her visual field. Patient states she took a phone call from a local bank where she was having difficulty with jumbling of her words, Asked her to take her to her primary care office where they phoned first and then were directed to the hospital.Patient denies having any changes in gross motor strength or fine motor skills such as what would be required to dress herself to come to the hospital.The patient has resolution of the jumbling of the words in the visual field changes however she still has a significant headache. In the emergency department she had a stroke alert called at which time thrombolytics were not recommended due to timing and the patient was given some antihypertensives of labetalol. Initial imaging of her brain was without regard for hemorrhage or stroke vascular abnormalities or dissection of any kind. The patient was given an aspirin. Patient has a family history of stroke in her mother, she has known bad cholesterol but is "not a pill taker" and is no tobacco history.Contrary to her med rec she does not take metoprolol for hypertension Principal Diagnosis Atypical headache stroke and TIA ruled out Discharge Exam The patient appeared well Vital signs as documented. Lungs are clear to auscultation and appear unlabored Cardiac exam, Rhythm is regular.. No murmurs, rubs or gallops. Abdominal exam reveals normal bowel sounds, soft non tender, no masses Extremities are nonedematous and both pedal pulses are normal. Neurologic exam is alert and oriented, no focal loss of strength or sensation Skin is without bruises or rashes Psychologically is without concerns for anxiety or depression Discharge Data Allergies Allergy/AdvReac Type Severity Reaction Status Date / Time No Known Drug Allergies Allergy Verified 08/14/19 13:58 Consultations 08/14/19 14:32 ED Decision to Admit Stat 08/14/19 16:04 Consult Neurology Routine Ordered Studies 08/14/19 13:30 CT angio head w con Stat CT angio neck with con Stat CT head/brain wo con Stat 08/14/19 16:04 MR brain wo con Routine Hospital Course (1) Stroke-like episode: Patient with unilateral findings consistent with possible atypical migraine, stroke has been ruled out. Patient had CT angiogram of her head neck and regular plain CT scan of the brain. These were negative for any abnormalities. Patient was given antihypertensive medications in the ER Patient's headache is all but resolved in the morning MRI scan of the brain is without abnormalities, echocardiogram is also without abnormalities preserved ejection fraction no shunt noted or PFO Patient with hemoglobin A1c and cholesterol panel done in the morning both are significant significantly and slightly higher than would be typically expected. However patient says she typically is not a pill taker and may not be interested in Cholesterol or blood glucose lowering medications. Patient now states she wishes to try dietary modification and weight loss I encouraged her to speak to her primary care physician as at this time she is not interested in starting any new medicines however she needs to be enrolled with a new primary physician and she previously has had some experience with [facility] wishes to return to that situation (2) Depression: Patient continues on Celexa Total Time Total Time Spent Total Time Spent (In Minutes): It required greater than 30 minutes to prepare this patient for discharge, a significant portion of time was spent counseling the patient at the bedside for both weight loss hypertensive treatment prediabetes and cholesterol dietary modification as well as managing her stress level at home which is been heightened by the recent COVID-19 isolation Discharge Plan Discharge Items Patient Disposition: Home - Self-Care Reason For Visit: POSSIBLE STROKE Discharge Diagnosis: atypical headache, no stroke seen boarderline diabetes high blood pressure high cholesterol Activity: Per Instructions section Activity Comment: increase cardiovascular activity Non-emergency contact: Primary Care Provider Call non-emergency contact if: you have any medication questions and your symptoms worsen Follow-up/Referrals: Faye Hanson MD [Primary Care Provider] - Stefanie Hammer DO [Outside Practitioners] - 08/22/19 9:25 am (A follow up appt. has been made for you with Dr. Hammer at [facility] office as your new primary care doctor as requested. This appt. is for August 21 at 9:25am. Please remember to call your insurance company to change your PCP so they can send you new cards.) Diet: Heart Healthy and Low Sodium (2gm) Addtl Attending Provider Instructions: please see primary care doctor for follow up to discuss your high blood pressure and your blood sugar please work on weight loss it will help these issues plus your cholesterol consider using melatonin for sleep Pending Studies at Discharge: No Stand-Alone Forms: [facility], Smoking Cessation Medications and DC Order Prescriptions: Continued metoprolol succinate 25 mg capsule,sprinkle,ER 24hr 25 mg PO DAILY Qty: 90 RF: 1 omega 2-qfr-edz-fish oil [Fish Oil] 1,000 mg (120 mg-180 mg) Capsule 1 cap PO QAM RF: 0 citalopram [Celexa] 40 mg tablet 40 mg PO QAM RF: 0 Discontinued ibuprofen-diphenhydramine cit [Ibuprofen PM] 200-38 mg Tablet 2 cap PO HS RF: 0 Discharge Orders: Discharge Order (Routine); Ordered 08/15/19 Ordered By: Pepe Helton/Other Patient Handouts: Diabetes Healthy Meals, Diabetes Meal Planning, Diabetes and High Blood Pressure, A1C Admission Data Admit Date/Time: 08/14/19 14:53 Attending Provider: Pepe Mckeon Admit Provider: Pepe Mckeon Primary Care Provider: Faye Hanson Other Providers: Pepe Mckeon ; Kay Alegria Other Interventions: Discharge Summary Assessment (RN) Last Done: 08/15/19 11:11 DC Date/Time DO NOT enter until pt leaves facility: 08/15/19 12:35 Coding Level of Care Code D/C Day Management >30 mins Diagnoses Stroke-like episode I63.9 Depression F32.9
== END 2019-08-15 12:35 | disposition home or self-care (01) ==
LOC: ED 13:08 → 2S 13:08

== ENCOUNTER 2020-12-11 18:59 | Observation (INO) ==
--- NOTE | 2020-12-11 20:58 | Emergency Department Note ---
Impression & Plan Hypertensive emergency, Headache ED Provider Note NAME: RONNIE JONES AGE: 75 SEX: F : 1945 ARRIVES VIA: Walk-In INFORMANT: Patient, ED PROVIDER(S): Jairon Kimball MD Chief Complaint: Headache HPI: Patient does present for headache. Patient describes it as over the top of the head and is sharp in nature. The patient states is been ongoing for approximately 3 weeks but has been worse within the last 24 to 48 hours. The patient does state that this is one of the worst headache she is ever experien tiff. Patient denies any recent falls or trauma. The patient did have some left hand tingling but this was transient. The patient denies any slurred speech or facial droop. The patient denies any weakness. The patient states that she had had some recent neck manipulation 2 weeks ago with a chiropractor but that she did not have worsening headache at that time. The patient denies any recent ph ysical or strenuous activity that worsen her headache. Patient was concerned as her blood pressure had been elevated was seen in the outpatient setting and was told to increase her losartan from 25 to 50 mg but did not fill that prescription this morning. Patient did take her morning 25 mg. Patient was noted to be with a systolic blood pressure greater than 200. Patient denies any alcohol tobacco or drug use. The patient is vaccinated for Covid and denies infectious symptoms. The patient denies any photophobia or phonophobia. The patient denies any current neck pain. ROS: See HPI for pertinent positives and negatives. A total of 10 systems were reviewed and otherwise negative. Past medical history: See below Surgical history: See below Social history: See below Physical Exam: GENERAL: NAD, [wearing glasses,][wearing a mask,] non-toxic. EYE EXAM: Normal conjunctiva. PERRL, no anisocoria and EOM's grossly intact w/o pain. NECK: Supple, no nuchal rigidity, no adenopathy, non-tender. No signs of meningismus. LUNGS: Clear to auscultation. Normal chest wall mechanics. HEART: NSR, no MRG. ABDOMEN: Abdomen soft, non-tender, normo-active bowel sounds, no masses, no rebound or guarding. BACK: No CVA TTP. SKIN: No rashes and no bruising. UPPER EXTREMITIES: Upper extremities are grossly normal. LOWER EXTREMITIES: Grossly normal, no edema. NEURO EXAM: A&O x3, cranial nerves II-XII grossly intact, normal speech, moves all 4 extremities on command w/o issue. [Good finger to nose, no drift, no sensory deficits.] Differential diagnoses: Migraine headache, meningitis, sinusitis, CO exposure, ICH, SAH, infection, tumor, headache, sinus thrombosis, arterial dissection, as well as other pathologies. Course: Patient was seen and evaluated the bedside. Full history physical exam was performed. Imaging Studies: See Below [Cardiac monitoring: An order was placed for continuous cardiac monitoring. The monitor shows a rate of 85 with sinus rhythm.] MDM: Patient was seen due to concern for headache. The patient was treated symptomatically and did have blood work completed along with CT head and CT angiography of the head and neck as the patient has stated that this was one of the worst headache she is ever experienced. Patient has a normal white count and hemoglobin. The patient's platelet count is unremarkable. Kidney function slightly elevated from baseline with creatinine 1.27. TSH is elevated but free T4 normal. CT head and CT angiography of the head and neck did not show any aneurysm or dissection. No ICH. Upon reassessment the patient was still having a headache and the patient was still hypertensive. I did discuss that we would try to treat hypertension in order to improve headache. Lopressor ordered. Patient was also ordered losartan 50 mg. I did speak with the on-call hospitalist Dr. Storey and the patient was admitted to the medicine service. Critical Care: I have personally spent 36 minutes of critical care time in direct management of this patient. This includes bedside care, interpretation of diagnostic studies, and testing, discussion with consultants, patient, and family members, and other require inpatient management activities. This 36 minutes is in excess of all separately billable procedures. Past Med/Surg History Medical History Acid reflux disease No recent issues Anxiety disorder celexa Benign hypertension Chronic cough Pt states she followed up with Dr. Marley regarding her cough and he told her "it's just allergies". Chronic/stable- actually mildly improved Depression Diabetes mellitus Diet controlled- Hgb A1C 04/11/20 was 6.5 History of migraine with aura 08/14/2019--pt came to [facility] ER with complaints of stroke like symptoms and per pt stroke was ruled out and she was diagnosed with migraines Hyperlipidemia No meds Obesity Sleep apnea Cannot tolerate device Surgical History History of carpal tunnel release right History of cataract surgery BL History of colonoscopy History of endoscopic sinus surgery 10/2018 History of esophagogastroduodenoscopy (EGD) History of exploratory laparotomy History of lumbar discectomy History of pancreatic surgery had benign tumor removed History of total abdominal hysterectomy with unilateral oopherectomy Hx of bladder repair surgery Hx of varicose vein ligation and stripping both legs Family History Mother Myocardial infarction Stroke Father Stroke Grandmother (Maternal) Family history of diabetes mellitus Sister Family history of diabetes mellitus Daughter Family hx of colon cancer Other No family history of adverse response to anesthesia Denies family history of Ovarian cancer Prostate cancer Breast cancer Colorectal cancer Social History Smoking Status: Never smoker Second Hand Exposure: Yes; Hx Alcohol Use: No Hx Substance Use: No Preferred Language: Portuguese Communication Ability: Effective Trade Union Official Required: No Beliefs That Will Affect Care: None Current Living Situation: Spouse current occupational status: retired Feels Safe at Home: Yes caffeine: Yes (coffee) Dental Care, Regularly: Yes Physical Activity Frequency: Does not Exercise Seatbelt Use: always Sunscreen Use: No Assistive Devices: Glasses Allergies Allergies Allergy/AdvReac Type Severity Reaction Status Date / Time No Known Drug Allergies Allergy Unknown Verified 12/11/20 23:15 Home Meds Home Medications Medication Instructions Recorded Confirmed omega 9-gpu-orv-fish oil 1,000 mg 1 cap PO QAM 05/16/18 12/11/20 (120 mg-180 mg) capsule (Fish Oil) citalopram 40 mg tablet (Celexa) 40 mg PO QAM 08/14/19 12/11/20 ibuprofen-diphenhydramine citrate 1 cap PO HS 04/03/20 12/11/20 200 mg-38 mg tablet (Ibuprofen PM) losartan 50 mg tablet 50 mg PO DAILY 12/11/20 12/11/20 Results & Data (ED) Vital Signs Vital Signs - 24 hr 12/11/20 19:26 12/11/20 21:19 12/11/20 21:41 Temperature 36.6 C Temperature Source Temporal Artery Scan Pulse Rate 77 Pulse Rate [Finger] 73 Pulse Rate from SpO2 Sensor Respiratory Rate 20 18 Respiratory Effort / Characteristics Respiratory Depth Respiratory Pattern Blood Pressure 214/133 H Blood Pressure [Left Arm] 232/99 H Blood Pressure Mean 160 Blood Pressure Mean [Left Arm] 143 Blood Pressure Position Sitting Blood Pressure Position [Left Arm] Lying Pulse Oximetry 97 91 92 Oxygen Delivery Method Room Air Room Air Oxygen Flow Rate Sepsis Recent Fever Within 48 Hours No Sepsis New/Unexplained Change in Mental Status N/A Sepsis Action Taken by Nursing No Action Required 12/11/20 21:58 12/11/20 22:39 12/11/20 22:41 Temperature Temperature Source Pulse Rate Pulse Rate [Finger] 77 81 Pulse Rate from SpO2 Sensor Respiratory Rate 18 18 Respiratory Effort / Characteristics Non-Labored Spontaneous Respiratory Depth Normal Respiratory Pattern Regular Blood Pressure 226/96 H Blood Pressure [Left Arm] 227/86 H 226/96 H Blood Pressure Mean 139 Blood Pressure Mean [Left Arm] 133 139 Blood Pressure Position Blood Pressure Position [Left Arm] Lying Lying Pulse Oximetry 92 95 Oxygen Delivery Method Nasal Cannula Nasal Cannula Oxygen Flow Rate 2 3 Sepsis Recent Fever Within 48 Hours Sepsis New/Unexplained Change in Mental Status Sepsis Action Taken by Nursing 12/11/20 23:01 12/11/20 23:12 12/11/20 23:18 Temperature Temperature Source Pulse Rate 77 74 Pulse Rate [Finger] Pulse Rate from SpO2 Sensor 77 Respiratory Rate 21 Respiratory Effort / Characteristics Respiratory Depth Respiratory Pattern Blood Pressure 212/79 H 212/79 H Blood Pressure [Left Arm] Blood Pressure Mean 123 Blood Pressure Mean [Left Arm] Blood Pressure Position Blood Pressure Position [Left Arm] Pulse Oximetry 95 Oxygen Delivery Method Oxygen Flow Rate Sepsis Recent Fever Within 48 Hours Sepsis New/Unexplained Change in Mental Status Sepsis Action Taken by Nursing 12/11/20 23:20 12/11/20 23:30 12/11/20 23:40 Temperature Temperature Source Pulse Rate 71 67 61 Pulse Rate [Finger] Pulse Rate from SpO2 Sensor 74 62 Respiratory Rate 22 20 23 Respiratory Effort / Characteristics Respiratory Depth Respiratory Pattern Blood Pressure Blood Pressure [Left Arm] Blood Pressure Mean Blood Pressure Mean [Left Arm] Blood Pressure Position Blood Pressure Position [Left Arm] Pulse Oximetry 90 Oxygen Delivery Method Oxygen Flow Rate Sepsis Recent Fever Within 48 Hours Sepsis New/Unexplained Change in Mental Status Sepsis Action Taken by Nursing 12/11/20 23:50 12/12/20 00:01 12/12/20 00:10 Temperature Temperature Source Pulse Rate 75 68 69 Pulse Rate [Finger] Pulse Rate from SpO2 Sensor 70 65 61 Respiratory Rate 20 18 16 Respiratory Effort / Characteristics Respiratory Depth Respiratory Pattern Blood Pressure 191/82 H Blood Pressure [Left Arm] Blood Pressure Mean 118 Blood Pressure Mean [Left Arm] Blood Pressure Position Blood Pressure Position [Left Arm] Pulse Oximetry 93 93 92 Oxygen Delivery Method Oxygen Flow Rate Sepsis Recent Fever Within 48 Hours Sepsis New/Unexplained Change in Mental Status Sepsis Action Taken by Nursing 12/12/20 00:20 Temperature Temperature Source Pulse Rate 66 Pulse Rate [Finger] Pulse Rate from SpO2 Sensor 65 Respiratory Rate 22 Respiratory Effort / Characteristics Respiratory Depth Respiratory Pattern Blood Pressure Blood Pressure [Left Arm] Blood Pressure Mean Blood Pressure Mean [Left Arm] Blood Pressure Position Blood Pressure Position [Left Arm] Pulse Oximetry 91 Oxygen Delivery Method Oxygen Flow Rate Sepsis Recent Fever Within 48 Hours Sepsis New/Unexplained Change in Mental Status Sepsis Action Taken by Half-Way Medications Current Medication List: was personally reviewed by me Laboratory Data Attestation: I reviewed the patient's lab results. Result diagrams: 12/11/20 21:19 12/11/20 21:19 Lab Results 12/11/20 12/11/20 12/11/20 Range/Units 21:19 21:19 23:25 WBC 10.53 (4.8-10.8) K/uL RBC 4.96 (4.2-5.4) M/uL Hgb 15.4 (12.0-16.0) g/dL Hct 48.1 H (37-47) % MCV 97.0 (80-100) fL MCH 31.0 (25-34) pg MCHC 32.0 (32-36) g/dL RDW Std Deviation 46.3 (36.4-46.3) fL RDW Coeff of Marky 13.1 (11.5-14.5) % Plt Count 356 (130-400) K/uL MPV 11.6 H (7.4-10.4) fL Immature Gran % (Auto) 0.2 % Neut % (Auto) 63.4 % Lymph % (Auto) 27.3 % [place] % (Auto) 7.1 % Eos % (Auto) 1.8 % Baso % (Auto) 0.2 % Neut # (Auto) 6.68 H (1.4-6.5) K/uL Lymph # (Auto) 2.87 (1.2-3.4) K/uL [place] # (Auto) 0.75 H (0.11-0.59) K/uL Eos # (Auto) 0.19 (0-0.5) K/uL Baso # (Auto) 0.02 (0-0.2) K/uL Immature Gran # (Auto) 0.02 (0.00-0.02) K/uL Sodium 138 (136-145) mmol/L Potassium 5.1 (3.5-5.1) mmol/L Chloride 102 (98-107) mmol/L Carbon Dioxide 33 H (21-32) mmol/L Anion Gap 3.0 (3-11) BUN 28 H (7-18) mg/dl Creatinine 1.27 H (0.6-1.2) mg/dl Est Cr Clr Drug Dosing 43.4 ml/min Est GFR ( Amer) 47.1 ml/min Est GFR (Non-Af Amer) 40.7 ml/min BUN/Creatinine Ratio 22.4 H (10-20) Glucose 117 H (70-99) mg/dl Calcium 9.7 (8.5-10.1) mg/dl TSH 5.590 H (0.300-4.500) uIu/ml Free T4 1.09 (0.8-1.6) ng/dl COVID-19 Eval Order Covid19 at [facility] Administered Medications Metoprolol Tartrate (Metoprolol Tartrate 1 Mg/Ml Vial) 5 mg IV Q5M PRN PRN Reason: Hypertension Stop: 01/10/21 23:11 Last Admin: 12/11/20 23:18 Dose: 5 mg Documented by: [id number] Discontinued Medications Acetaminophen (Acetaminophen 325 Mg Tab) 650 mg PO NOW STA Stop: 12/11/20 21:13 Last Admin: 12/11/20 21:27 Dose: 650 mg Documented by: [id number] Dexamethasone Sodium Phosphate (DexamethasonePf 10 Mg/Ml Vial) 10 mg IV NOW ONE Stop: 12/11/20 21:13 Last Admin: 12/11/20 21:34 Dose: 10 mg Documented by: [id number] Diphenhydramine HCl (Diphenhydramine 50 Mg/Ml Vial) 25 mg IV NOW STA Stop: 12/11/20 21:13 Last Admin: 12/11/20 21:27 Dose: 25 mg Documented by: [id number] Hydralazine HCl (Hydralazine Hcl 20 Mg/Ml Vial) 10 mg IV NOW STA Stop: 12/11/20 22:56 Last Admin: 12/11/20 23:18 Dose: Not Given Documented by: [id number] Sodium Chloride (Nss) 500 mls @ 999 mls/hr IV .Q31M CASEY Stop: 12/11/20 21:45 Last Infusion: 12/11/20 21:57 Dose: 0 mls/hr Documented by: [id number] Admin: 12/11/20 21:26 Dose: 999 mls/hr Documented by: [id number] Magnesium Sulfate/Dextrose (Magnesium Sulfate / D5w) 1 gm in 100 mls @ 100 m ls/hr IV NOW ONE Stop: 12/11/20 22:11 Last Infusion: 12/11/20 22:40 Dose: 0 mls/hr Documented by: [id number] Admin: 12/11/20 21:34 Dose: 100 mls/hr Documented by: [id number] Ioversol (Optiray 320 125ml) 120 ml IV ONCE ONE Stop: 12/11/20 22:35 Last Admin: 12/11/20 22:35 Dose: 120 ml Documented by: [id number] Losartan Potassium (Losartan Potassium 50 Mg Tab) 50 mg PO NOW STA Stop: 12/11/20 22:56 Last Admin: 12/12/20 00:24 Dose: 50 mg Documented by: [id number] Prochlorperazine (Prochlorperazine 5 Mg/Ml 2 Ml Vial) 10 mg IV NOW STA Stop: 12/11/20 21:13 Last Admin: 12/11/20 21:27 Dose: 10 mg Documented by: [id number] Imaging Data Radiologist's Impression: Head CTA 12/11/20 21:12 CT angio neck with con, CT angio head w con Clinical Indication: [place] ^B6 CTR ^worst HOPKINS ever, HTNsive. TECHNIQUE: CT angiography of the head and neck was performed following intravenous administration of 75 mL of Omnipaque 350 injected at a rate of 5 cc/sec. Multiple MIP images in axial, coronal, and sagittal planes and 3D surfaced rendered images were then acquired using the source data. Automated dose lowering techniques and/or adjustment according to patient size were utilized for this examination. Comparison: Comparison is made to CT neck 12/11/2020 FINDINGS: CTA Neck: A 3 vessel aortic arch is shown. Atherosclerotic plaque is present in the aortic arch and at the origin of the great vessels. There is no atherosclerotic plaque at the origins of the vertebral arteries. The common carotid, external carotid, cervical segments of the internal carotid arteries, and the cervical segments of the vertebral arteries are patent. Retropharyngeal course of the internal carotid arteries noted bilaterally. There is no hemodynamically significant diameter stenosis or dissection present. The left vertebral artery is dominant. There is an 11 mm nodule in the left upper lobe (series 6 image 14). There is a 15 mm thyroid nodule in the isthmus. CTA Head: The anterior and posterior cerebral circulations are patent. No hemodynamically significant stenosis, aneurysm, dissection, or arteriovenous malformation is shown. Incidental note is made of origin of the right PROJECT DESIGN ENGINEER. Atherosclerotic disease is noted. IMPRESSION: 1. No occlusion, hemodynamically significant stenosis, aneurysm, dissection, or arteriovenous malformation in the major intracranial arteries. 2. No occlusion, hemodynamically significant stenosis, or dissection in the major cervical arteries. 3. 11 mm nodule in the left upper lobe. Correlation with prior imaging is recommended. If prior imaging is unavailable, according to Fleischner criteria, 3 month follow-up CT, PET/CT, or tissue sampling may be performed. 4. 15 mm nodule in the isthmus of the thyroid. Recommend nonemergent ultrasound follow-up if not previously evaluated. Assessment of stenosis of the internal carotid arteries is based on NASCET criteria. ACT 112: Negative or not required by law. Electronically signed by: Anthony Pascal M.D. 12/11/2020 10:46 PM Neck CTA 12/11/20 21:12 CT angio neck with con, CT angio head w con Clinical Indication: [place] ^B6 CTR ^worst HOPKINS ever, HTNsive. TECHNIQUE: CT angiography of the head and neck was performed following intravenous administration of 75 mL of Omnipaque 350 injected at a rate of 5 cc/sec. Multiple MIP images in axial, coronal, and sagittal planes and 3D surfaced rendered images were then acquired using the source data. Automated dose lowering techniques and/or adjustment according to patient size were utilized for this examination. Comparison: Comparison is made to CT neck 12/11/2020 FINDINGS: CTA Neck: A 3 vessel aortic arch is shown. Atherosclerotic plaque is present in the aortic arch and at the origin of the great vessels. There is no atherosclerotic plaque at the origins of the vertebral arteries. The common carotid, external carotid, cervical segments of the internal carotid arteries, and the cervical segments of the vertebral arteries are patent. Retropharyngeal course of the internal carotid arteries noted bilaterally. There is no hemodynam ically significant diameter stenosis or dissection present. The left vertebral artery is dominant. There is an 11 mm nodule in the left upper lobe (series 6 image 14). There is a 15 mm thyroid nodule in the isthmus. CTA Head: The anterior and posterior cerebral circulations are patent. No hemodynamically significant stenosis, aneurysm, dissection, or arteriovenous malformation is shown. Incidental note is made of origin of the right PROJECT DESIGN ENGINEER. Atherosclerotic disease is noted. IMPRESSION: 1. No occlusion, hemodynamically significant stenosis, aneurysm, dissection, or arteriovenous malformation in the major intracranial arteries. 2. No occlusion, hemodynamically significant stenosis, or dissection in the major cervical arteries. 3. 11 mm nodule in the left upper lobe. Correlation with prior imaging is recommended. If prior imaging is unavailable, according to Fleischner criteria, 3 month follow-up CT, PET/CT, or tissue sampling may be performed. 4. 15 mm nodule in the isthmus of the thyroid. Recommend nonemergent ultrasound follow-up if not previously evaluated. Assessment of stenosis of the internal carotid arteries is based on NASCET criteria. ACT 112: Negative or not required by law. Electronically signed by: Anthony Pascal M.D. 12/11/2020 10:[address] 12/11/20 21:14 CT head/brain wo con Clinical Indication: [place] ^Headache . Technique: Contiguous axial CT images of the head were acquired from the base of the skull to the vertex without intravenous contrast administration. Images were viewed in brain, subdural and bone windows. Automated dose lowering techniques and/or adjustment according to patient size were utilized for this exam. Comparison: None available at the time of this dictation. Findings: Areas of decreased attenuation are present in the periventricular and subcortical white matter bilaterally consistent with small vessel ischemic disease. Generalized cerebral atrophy with commensurate enlargement of the ventricles, sulci, and cisterns is also present. There is no acute intracranial hemorrhage or evidence of acute territorial infarction. No shift of the midline structures, mass effect, or extra-axial abnormalities are shown. Atherosclerotic calcifications are present in the intracranial segments of the internal carotid arteries. A mucous polyp in the left maxillary sinus is seen. The orbits appear normal. There are no acute fractures of the calvaria or scalp swelling. Impression: No acute intracranial hemorrhage, evidence of acute territorial infarction, or other acute intracranial disease process. ACT 112: Negative or not required by law. Electronically signed by: Anthony Pascal M.D. 12/11/2020 10:35 PM Discharge Plan Visit Data Chief Complaint: Headache Stated Complaint: REALLY BAD HEADACHE ED Provider: Jairon Kimball Discharge Problem: Hypertensive emergency, Headache Patient Disposition: Admitted As Inpatient Forms Stand Alone Forms: [facility] Prescriptions Prescriptions: No Action omega 2-drw-mbg-fish oil [Fish Oil] 1,000 mg (120 mg-180 mg) Capsule 1 cap PO QAM RF: 0 citalopram [Celexa] 40 mg tablet 40 mg PO QAM RF: 0 Ibuprofen PM 200-38 mg Tablet 1 cap PO HS RF: 0 losartan 50 mg tablet 50 mg PO DAILY RF: 0 Referrals Referrals: PCP,NO [Physician] -
[2020-12-11] MEDS ORDERED: diphenhydrAMINE 50 MG/ML VIAL IV STA (21:12)
[2020-12-11] MEDS ORDERED: MAGNESIUM SULFATE / D5W 1 GM/100 ML BAG IV ONE (21:12)
[2020-12-11] MEDS ORDERED: PROCHLORPERAZINE 5 MG/ML 2 ML VIAL IV STA (21:12)
[2020-12-11] MEDS ORDERED: dexAMETHasone**PF** 10 MG/ML VIAL IV ONE (21:12)
[2020-12-11] MEDS ORDERED: ACETAMINOPHEN 325 MG TAB PO STA (21:12)
[2020-12-11] MEDS ORDERED: SODIUM CHLORIDE 0.9% 500 ML IV SCH (21:15)
[2020-12-11 21:26] LABS: Basophils # (auto) 0.02 K/uL (0-0.2); Basophils % (auto) 0.2 %; Eosinophils # (auto) 0.19 K/uL (0-0.5); Eosinophils % (auto) 1.8 %; Hematocrit (blood only) 48.1 % (37-47); Hemoglobin 15.4 g/dL (12.0-16.0); Immature Granulocytes # (auto) 0.02 K/uL (0.00-0.02); Immature Granulocytes % (auto) 0.2 %; Lymphocytes # (auto) 2.87 K/uL (1.2-3.4); Lymphocytes % (auto) 27.3 %; Mean Platelet Volume 11.6 fL (7.4-10.4); Monocytes # (auto) 0.75 K/uL (0.11-0.59); Monocytes % (auto) 7.1 %; Neutrophils # (auto) 6.68 K/uL (1.4-6.5); Neutrophils % (auto) 63.4 %; Platelet Count 356 K/uL (130-400); RDW Coefficient of Variation 13.1 % (11.5-14.5); RDW Standard Deviation 46.3 fL (36.4-46.3); Red Blood Count 4.96 M/uL (4.2-5.4); White Blood Count 10.53 K/uL (4.8-10.8)
[2020-12-11 21:44] LABS: BUN Creatinine Ratio 22.4 (10-20); Calcium 9.7 mg/dl (8.5-10.1); Creatinine Clr Calc Pharmacy 43.4 ml/min; Est GFR (African American) 47.1 ml/min; Est GFR (Non-African American) 40.7 ml/min; Potassium 5.1 mmol/L (3.5-5.1)
[2020-12-11] MEDS ORDERED: OPTIRAY 320 125ml IV ONE (22:34)
--- NOTE | 2020-12-11 22:38 | CT Scan Report ---
CT head/brain wo con Clinical Indication: [place] ^Headache . Technique: Contiguous axial CT images of the head were acquired from the base of the skull to the jorge saida without intravenous contrast administration. Images were viewed in brain, subdural and [facility]. Automated dose lowering techniques and/or adjustment according to patient size were utilized for this exam. Comparison: None available at the time of this dictation. Findings: Areas of decreased attenuation are present in the periventricular and subcortical white matter bilate rally consistent with small vessel ischemic disease. Generalized cerebral atrophy with commensurate e nlargement of the ventricles, sulci, and cisterns is also present. There is no acute intracranial hem orrhage or evidence of acute territorial infarction. No shift of the midline structures, mass effect, or extra-axial abnormalities are shown. Atherosclerotic calcifications are present in the intracran ial segments of the internal carotid arteries. A mucous polyp in the left maxillary sinus is seen. The orbits appear normal. There are no acute fra ctures of the calvaria or scalp swelling. Impression: No acute intracranial hemorrhage, evidence of acute territorial infarction, or other acute intracrani al disease process. ACT 112: Negative or not required by law. Electronically signed by: Anthony Pascal M.D. 12/11/2020 10:35 PM
--- NOTE | 2020-12-11 22:47 | CT Scan Report ---
CT angio neck with con, CT angio head w con Clinical Indication: [place] ^B6 CTR ^worst HOP[facility]INS ever, HTNsive. TECHNIQUE: CT angiography of the head and neck was performed following intravenous administration of 75 mL of Omnipaque 350 injected at a rate of 5 cc/sec. Multiple MIP images in axial, coronal, and sag ittal planes and 3D surfaced rendered images were then acquired using the source data. Automated dose lowering techniques and/or adjustment according to patient size were utilized for this examination. Comparison: Comparison is made to CT neck 12/11/2020 FINDINGS: CTA Neck: A 3 vessel aortic arch is shown. Atherosclerotic plaque is present in the aortic arch and at the origin of the great vessels. There is no atherosclerotic plaque at the origins of the vertebra l arteries. The common carotid, external carotid, cervical segments of the internal carotid arteries, and the cervical segments of the vertebral arteries are patent. Retropharyngeal course of the internet cafe manager al carotid arteries noted bilaterally. There is no hemodynamically significant diameter stenosis or d issection present. The left vertebral artery is dominant. There is an 11 mm nodule in the left upper lobe (series 6 image 14). There is a 15 mm thyroid nodule in the isthmus. CTA Head: The anterior and posterior cerebral circulations are patent. No hemodynamically significan t stenosis, aneurysm, dissection, or arteriovenous malformation is shown. Incidental note is made of origin of the right SQUAD BOSS. Atherosclerotic disease is noted. IMPRESSION: 1. No occlusion, hemodynamically significant stenosis, aneurysm, dissection, or arteriovenous malfor mation in the major intracranial arteries. 2. No occlusion, hemodynamically significant stenosis, or dissection in the major cervical arteries. 3. 11 mm nodule in the left upper lobe. Correlation with prior imaging is recommended. If prior imag ing is unavailable, according to Fleischner criteria, 3 month follow-up CT, PET/CT, or tissue samplin g may be performed. 4. 15 mm nodule in the isthmus of the thyroid. Recommend nonemergent ultrasound follow-up if not pre viously evaluated. Assessment of stenosis of the internal carotid arteries is based on NASCET criteria. ACT 112: Negative or not required by law. Electronically signed by: Anthony Pascal M.D. 12/11/2020 10:46 PM
--- NOTE | 2020-12-11 22:47 | CT Scan Report ---
CT angio neck with con, CT angio head w con Clinical Indication: [place] ^B6 CTR ^worst H[facility]KINS ever, HTNsive. TECHNIQUE: CT angiography of the head and neck was performed following intravenous administration of 75 mL of Omnipaque 350 injected at a rate of 5 cc/sec. Multiple MIP images in axial, coronal, and sag ittal planes and 3D surfaced rendered images were then acquired using the source data. Automated dose lowering techniques and/or adjustment according to patient size were utilized for this examination. Comparison: Comparison is made to CT neck 12/11/2020 FINDINGS: CTA Neck: A 3 vessel aortic arch is shown. Atherosclerotic plaque is present in the aortic arch and at the origin of the great vessels. There is no atherosclerotic plaque at the origins of the vertebra l arteries. The common carotid, external carotid, cervical segments of the internal carotid arteries, and the cervical segments of the vertebral arteries are patent. Retropharyngeal course of the leadership intern al carotid arteries noted bilaterally. There is no hemodynamically significant diameter stenosis or d issection present. The left vertebral artery is dominant. There is an 11 mm nodule in the left upper lobe (series 6 image 14). There is a 15 mm thyroid nodule in the isthmus. CTA Head: The anterior and posterior cerebral circulations are patent. No hemodynamically significan t stenosis, aneurysm, dissection, or arteriovenous malformation is shown. 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 Atherosclerotic disease is noted. IMPRESSION: 1. No occlusion, hemodynamically significant stenosis, aneurysm, dissection, or arteriovenous malfor mation in the major intracranial arteries. 2. No occlusion, hemodynamically significant stenosis, or dissection in the major cervical arteries. 3. 11 mm nodule in the left upper lobe. Correlation with prior imaging is recommended. If prior imag ing is unavailable, according to Fleischner criteria, 3 month follow-up CT, PET/CT, or tissue samplin g may be performed. 4. 15 mm nodule in the isthmus of the thyroid. Recommend nonemergent ultrasound follow-up if not pre viously evaluated. Assessment of stenosis of the internal carotid arteries is based on NASCET criteria. ACT 112: Negative or not required by law. Electronically signed by: Anthony Pascal M.D. 12/11/2020 10:46 PM
[2020-12-11] MEDS ORDERED: hydrALAZINE HCL 20 MG/ML VIAL IV STA (22:55)
[2020-12-11] MEDS ORDERED: LOSARTAN POTASSIUM 50 MG TAB PO STA (22:55)
[2020-12-11] MEDS ORDERED: METOPROLOL TARTRATE 1 MG/ML VIAL IV PRN (23:12)
[2020-12-11 23:43] LABS: Thyroid Stimulating Hormone 5.59 uIu/ml (0.300-4.500)
[2020-12-11 23:56] LABS: T4 Free Thyroxine 1.09 ng/dl (0.8-1.6)
--- NOTE | 2020-12-12 01:11 | Hospitalist Progress Note ---
Date of Service December 12, 2020 Assessment & Plan (1) Hypertensive urgency: (2) MARCIE (acute kidney injury): (3) Headache: (4) Depression: (5) DVT prophylaxis: Results & Data Results & Data ([facility]) Vital Signs (Past 12 Hours) Vital Signs Temp Pulse Pulse Resp BP BP Pulse Ox 12/12/20 00:20 66 22 91 12/12/20 00:10 69 16 92 12/12/20 00:01 68 18 191/82 H 93 12/11/20 23:50 75 20 93 12/11/20 23:40 61 23 12/11/20 23:30 67 20 90 12/11/20 23:20 71 22 12/11/20 23:18 74 212/79 H 12/11/20 23:12 77 21 95 12/11/20 23:01 212/79 H 12/11/20 22:41 81 18 226/96 H 95 12/11/20 22:39 226/96 H 12/11/20 21:58 77 18 227/86 H 92 12/11/20 21:41 73 18 232/99 H 92 12/11/20 21:19 91 12/11/20 19:26 36.6 C 77 20 214/133 H 97 Laboratory Results Short CBC 12/11/20 Range/Units 21:19 WBC 10.53 (4.8-10.8) K/uL Hgb 15.4 (12.0-16.0) g/dL Hct 48.1 H (37-47) % Plt Count 356 (130-400) K/uL BMP 12/11/20 21:19 Sodium 138 Potassium 5.1 Chloride 102 Carbon Dioxide 33 H BUN 28 H Creatinine 1.27 H Glucose 117 H Calcium 9.7 Diagnostic Findings Head CTA 12/11/20 21:12 CT angio neck with con, CT angio head w con Clinical Indication: [place] ^B6 CTR ^worst [facility]KINS ever, HTNsive. TECHNIQUE: CT angiography of the head and neck was performed following intravenous administration of 75 mL of Omnipaque 350 injected at a rate of 5 cc/sec. Multiple MIP images in axial, coronal, and sagittal planes and 3D surfaced rendered images were then acquired using the source data. Automated dose lowering techniques and/or adjustment according to patient size were utilized for this examination. Comparison: Comparison is made to CT neck 12/11/2020 FINDINGS: CTA Neck: A 3 vessel aortic arch is shown. Atherosclerotic plaque is present in the aortic arch and at the origin of the great vessels. There is no atherosclerotic plaque at the origins of the vertebral arteries. The common carotid, external carotid, cervical segments of the internal carotid arteries, and the cervical segments of the vertebral arteries are patent. Retropharyngeal course of the internal carotid arteries noted bilaterally. There is no hemodynamically significant diameter stenosis or dissection present. The left vertebral artery is dominant. There is an 11 mm nodule in the left upper lobe (series 6 image 14). There is a 15 mm thyroid nodule in the isthmus. CTA Head: The anterior and posterior cerebral circulations are patent. No hemodynamically significant stenosis, aneurysm, dissection, or arteriovenous malformation is shown. 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 Atherosclerotic disease is noted. IMPRESSION: 1. No occlusion, hemodynamically significant stenosis, aneurysm, dissection, or arteriovenous malformation in the major intracranial arteries. 2. No occlusion, hemodynamically significant stenosis, or dissection in the major cervical arteries. 3. 11 mm nodule in the left upper lobe. Correlation with prior imaging is recommended. If prior imaging is unavailable, according to Fleischner criteria, 3 month follow-up CT, PET/CT, or tissue sampling may be performed. 4. 15 mm nodule in the isthmus of the thyroid. Recommend nonemergent ultrasound follow-up if not previously evaluated. Assessment of stenosis of the internal carotid arteries is based on NASCET criteria. ACT 112: Negative or not required by law. Electronically signed by: Anthony Pascal M.D. 12/11/2020 10:46 PM Neck CTA 12/11/20 21:12 CT angio neck with con, CT angio head w con Clinical Indication: [place] ^B6 CTR ^worst HOPKINS ever, HTNsive. TECHNIQUE: CT angiography of the head and neck was performed following intravenous administration of 75 mL of Omnipaque 350 injected at a rate of 5 cc/sec. Multiple MIP images in axial, coronal, and sagittal planes and 3D surfaced rendered images were then acquired using the source data. Automated dose lowering techniques and/or adjustment according to patient size were utilized for this examination. Comparison: Comparison is made to CT neck 12/11/2020 FINDINGS: CTA Neck: A 3 vessel aortic arch is shown. Atherosclerotic plaque is present in the aortic arch and at the origin of the great vessels. There is no atherosclerotic plaque at the origins of the vertebral arteries. The common carotid, external carotid, cervical segments of the internal carotid arteries, and the cervical segments of the vertebral arteries are patent. Retropharyngeal course of the internal carotid arteries noted bilaterally. There is no hemodynamically significant diameter stenosis or dissection present. The left vertebral artery is dominant. There is an 11 mm nodule in the left upper lobe (series 6 image 14). There is a 15 mm thyroid nodule in the isthmus. CTA Head: The anterior and posterior cerebral circulations are patent. No hemodynamically significant stenosis, aneurysm, dissection, or arteriovenous malformation is shown. 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 Atherosclerotic disease is noted. IMPRESSION: 1. No occlusion, hemodynamically significant stenosis, aneurysm, dissection, or arteriovenous malformation in the major intracranial arteries. 2. No occlusion, hemodynamically significant stenosis, or dissection in the major cervical arteries. 3. 11 mm nodule in the left upper lobe. Correlation with prior imaging is recommended. If prior imaging is unavailable, according to Fleischner criteria, 3 month follow-up CT, PET/CT, or tissue sampling may be performed. 4. 15 mm nodule in the isthmus of the thyroid. Recommend nonemergent ultrasound follow-up if not previously evaluated. Assessment of stenosis of the internal carotid arteries is based on NASCET criteria. ACT 112: Negative or not required by law. Electronically signed by: Anthony Pascal M.D. 12/11/2020 10:[address] 12/11/20 21:14 CT head/brain wo con Clinical Indication: [place] ^Headache . Technique: Contiguous axial CT images of the head were acquired from the base of the skull to the vertex without intravenous contrast administration. Images were viewed in brain, subdural and bone windows. Automated dose lowering techniques and/or adjustment according to patient size were utilized for this exam. Comparison: None available at the time of this dictation. Findings: Areas of decreased attenuation are present in the periventricular and subcortical white matter bilaterally consistent with small vessel ischemic disease. Generalized cerebral atrophy with commensurate enlargement of the ventricles, sulci, and cisterns is also present. There is no acute intracranial hemorrhage or evidence of acute territorial infarction. No shift of the midline structures, mass effect, or extra-axial abnormalities are shown. Atherosclerotic calcifications are present in the intracranial segments of the internal carotid arteries. A mucous polyp in the left maxillary sinus is seen. The orbits appear normal. There are no acute fractures of the calvaria or scalp swelling. Impression: No acute intracranial hemorrhage, evidence of acute territorial infarction, or other acute intracranial disease process. ACT 112: Negative or not required by law. Electronically signed by: Anthony Pascal M.D. 12/11/2020 10:35 PM
[2020-12-12] MEDS ORDERED: ACETAMINOPHEN 325 MG TAB PO PRN (01:35)
[2020-12-12] MEDS ORDERED: POLYETHYLENE (MIRALAX) 17 GM PACK PO PRN (01:35)
[2020-12-12] MEDS ORDERED: ONDANSETRON INJ 2 MG/ML 2 ML VIAL IV PRN (01:35)
--- NOTE | 2020-12-12 01:47 | History & Physical Report ---
Date of Service December 12, 2020 Assessment & Plan (1) Hypertensive urgency: Plan: Acutely worsened blood pressure in the 220s likely related to severe headache. She was given Lopressor IV in the ER and losartan 50 mg p.o. Will give additional hydralazine IV now and as needed for goal blood pressure less than 160 systolic. To treat the pain in the ER she was given a cocktail for her headache including IV fluids, Compazine, Benadryl and Mg with no effect. Will try some fioricet on her now and BP now down into the 150s systolic after the one dose of hydralazine. She is now starting to have worsening hypoxia and I am concerned for the development of flash pulmonary edema. She now has crackles at the left base to auscultation and is requiring more oxygen acutely. CXR now with one dose Lasix now. Transfer to PCU. (2) Hypoxia: Plan: Consideration for acute pulmonary edema in setting of severely elevated blood pressure. Lasix ordered now. CXR pending. ABG pending. EKG pending. Trop ordered. Transfer to PCU. Cont to titrate supplemental oxygen as needed. (3) Headache: Plan: Plan as above. If no improvement, will consider alternative pain medications/neurology consultation. (4) MARCIE (acute kidney injury): Plan: Likely related to poor PO intake and recent NSAID use at home to treat headache. Hold losartan, noting one dose given in ER this evening. Additionally, she is receiving a loop diuretic in setting of possible developing pulmonary edema, which may worsen the creatinine. Will trend BMP in am. (5) Depression: Plan: Cont celexa per home regimen. (6) Pulmonary nodule: Plan: Repeat imaging as outpatient per guidelines. (7) Thyroid nodule: Plan: Incidental finding on imaging. Non-urgent thyroid us recommended as outpatient. (8) DVT prophylaxis: Plan: Heparin Full Code Dispo-to [facility] and [facility]ticipated Discharge Date Admission Date: December 11, 2020 History of Present Illness Chief Complaint: Severe headache Primary Care Provider: Stefanie Hammer DO The patient is a 75-year-old obese female who denies a history of MOSHE, which is documented in records, who presents for severe headache that has been ongoing now for a couple of weeks. She was recently seen by her PCP yesterday where her blood pressure was 152/90 and her losartan was changed from 25 mg p.o. daily to 50 mg p.o. daily. She presents this evening because her headache has become worse in the last 24 to 48 hours. She did report some left hand tingling that lasted a few seconds. She otherwise denied any strokelike symptoms. She initially felt that her back or neck was out of alignment, but realized manipulation did not help her headache. 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 Review of outpatient records consistently shows a normal blood pressure on 25 mg of losartan. She is a non- smoker and does not drink alcohol. She reports an average intake of salt. Her kidney function is slightly elevated from baseline with a creatinine of 1.3. In the ER CT head with angiography of the head and neck did not show any aneurysm or dissection and there is no intracranial hemorrhage present. She was markedly hypertensive in the ER with a blood pressure of 214/133. She was treated with a cocktail to help her headache and given parenteral antihypertensives. She denies any chest pain, abdominal pain, fevers, chills, urinary symptoms, visual symptoms, difficulty swallowing difficulty speaking or other issues. She she currently denies any sensory deficits. On the floor her BP was 215/87. She was given one dose of hydralazine with and improvement in her blood pressure to 166/76 an then 150 systolic. She still reported severe head pain. A fiorcet had been ordered but not given yet because of the EMR downtime. This will be given shortly. She then reported some shortness of breath and new crackles at the left lung base were noted on bedside re-evaluation. She was now oxygenating 92% on 4LPM. A CXR was ordered and is pending. Allergies Allergy/AdvReac Type Severity Reaction Status Date / Time No Known Drug Allergies Allergy Unknown Verified 12/11/20 23:15 Home Medications Medication Instructions Recorded Confirmed Type omega 9-[id number]-jwm-fish oil 1,000 mg 1 cap PO QAM 05/16/18 12/11/20 History (120 mg-180 mg) capsule (Fish Oil) citalopram 40 mg tablet (Celexa) 40 mg PO QAM 08/14/19 12/11/20 History ibuprofen-diphenhydramine citrate 1 cap PO HS 04/03/20 12/11/20 History 200 mg-38 mg tablet (Ibuprofen PM) losartan 50 mg tablet 50 mg PO DAILY 12/11/20 12/11/20 History Past Med/Surg History Medical History Acid reflux disease No recent issues Anxiety disorder celexa Benign hypertension Chronic cough Pt states she followed up with Dr. Marley regarding her cough and he told her "it's just allergies". Chronic/stable- actually mildly improved Depression Diabetes mellitus Diet controlled- Hgb A1C 04/11/20 was 6.5 History of migraine with aura 08/14/2019--pt came to [facility] ER with complaints of stroke like symptoms and per pt stroke was ruled out and she was diagnosed with migraines Hyperlipidemia No meds Obesity Sleep apnea Cannot tolerate device Surgical History History of carpal tunnel release right History of cataract surgery BL History of colonoscopy History of endoscopic sinus surgery 10/2018 History of esophagogastroduodenoscopy (EGD) History of exploratory laparotomy History of lumbar discectomy History of pancreatic surgery had benign tumor removed History of total abdominal hysterectomy with unilateral oopherectomy Hx of bladder repair surgery Hx of varicose vein ligation and stripping both legs Family History Mother Myocardial infarction Stroke Father Stroke Grandmother (Maternal) Family history of diabetes mellitus Sister Family history of diabetes mellitus Daughter Family hx of colon cancer Other No family history of adverse response to anesthesia Denies family history of Ovarian cancer Prostate cancer Breast cancer Colorectal cancer Social History Smoking Status: Never smoker Second Hand Exposure: Yes; Hx Alcohol Use: No Hx Substance Use: No Preferred Language: Hebrew Communication Ability: Effective Digitizer Operator Required: No Beliefs That Will Affect Care: None Current Living Situation: Spouse current occupational status: retired Feels Safe at Home: Yes caffeine: Yes (coffee) Dental Care, Regularly: Yes Physical Activity Frequency: Does not Exercise Seatbelt Use: always Sunscreen Use: No Assistive Devices: Glasses Review of Systems Review of Systems: At least ten systems were reviewed and negative except as indicated in HPI above. Physical Exam Physical Exam: CONSTITUTIONAL: obese, vitals as above, generally ill- appearing, NAD, appear uncomfortable from pain EYES: EOMI bilaterally, PERRL, normal conjunctivae, no scleral icterus, no fundoscopic abnormality ENT: external ear and nose normal, MMM NECK: trachea midline RESPIRATORY: clear to auscultation bilaterally, no crackles, rales or wheezes, normal respiratory effort CARDIOVASCULAR: regular rate and rhythm, S1 and 2 heard without murmurs, gallops or rubs, no JVD, no peripheral edema CHEST: inspection of chest was normal GASTROINTESTINAL: soft, nontender, ND MUSCULOSKELETAL: strength 5/5 throughout, head is normocephalic and atraumatic SKIN: warm and dry, no rashes NEUROLOGIC: CN 2-12 intact, no sensory deficit, normal cognition, normal speech, no tremor, no gross foal deficit. Gait not assessed as patient uncomfortable. PSYCHIATRIC: alert cooperative and oriented to person, place and time. Results & Data Results & Data ([facility]) Vital Signs (Past 12 Hours) Vital Signs Temp Pulse Pulse Resp BP BP Pulse Ox 12/12/20 00:20 66 22 91 12/12/20 00:10 69 16 92 12/12/20 00:01 68 18 191/82 H 93 12/11/20 23:50 75 20 93 12/11/20 23:40 61 23 12/11/20 23:30 67 20 90 12/11/20 23:20 71 22 12/11/20 23:18 74 212/79 H 12/11/20 23:12 77 21 95 12/11/20 23:01 212/79 H 12/11/20 22:41 81 18 226/96 H 95 12/11/20 22:39 226/96 H 12/11/20 21:58 77 18 227/86 H 92 12/11/20 21:41 73 18 232/99 H 92 12/11/20 21:19 91 12/11/20 19:26 36.6 C 77 20 214/133 H 97 Laboratory Results Short CBC 12/11/20 Range/Units 21:19 WBC 10.53 (4.8-10.8) K/uL Hgb 15.4 (12.0-16.0) g/dL Hct 48.1 H (37-47) % Plt Count 356 (130-400) K/uL BMP 12/11/20 21:19 Sodium 138 Potassium 5.1 Chloride 102 Carbon Dioxide 33 H BUN 28 H Creatinine 1.27 H Glucose 117 H Calcium 9.7 Diagnostic Findings Head CTA 12/11/20 21:12 CT angio neck with con, CT angio head w con Clinical Indication: MN ^B6 CTR ^worst HOPKINS ever, HTNsive. TECHNIQUE: CT angiography of the head and neck was performed following intravenous administration of 75 mL of Omnipaque 350 injected at a rate of 5 cc/sec. Multiple MIP images in axial, coronal, and sagittal planes and 3D surfaced rendered images were then acquired using the source data. Automated dose lowering techniques and/or adjustment according to patient size were utilized for this examination. Comparison: Comparison is made to CT neck 12/11/2020 FINDINGS: CTA Neck: A 3 vessel aortic arch is shown. Atherosclerotic plaque is present in the aortic arch and at the origin of the great vessels. There is no atherosclerotic plaque at the origins of the vertebral arteries. The common carotid, external carotid, cervical segments of the internal carotid arteries, and the cervical segments of the vertebral arteries are patent. Retropharyngeal course of the internal carotid arteries noted bilaterally. There is no hemodynamically significant diameter stenosis or dissection present. The left vertebral artery is dominant. There is an 11 mm nodule in the left upper lobe (series 6 image 14). There is a 15 mm thyroid nodule in the isthmus. CTA Head: The anterior and posterior cerebral circulations are patent. No hemodynamically significant stenosis, aneurysm, dissection, or arteriovenous malformation is shown. Incidental note is made of origin of the right MENTAL HEALTH NURSE. Atherosclerotic disease is noted. IMPRESSION: 1. No occlusion, hemodynamically significant stenosis, aneurysm, dissection, or arteriovenous malformation in the major intracranial arteries. 2. No occlusion, hemodynamically significant stenosis, or dissection in the major cervical arteries. 3. 11 mm nodule in the left upper lobe. Correlation with prior imaging is recommended. If prior imaging is unavailable, according to Fleischner criteria, 3 month follow-up CT, PET/CT, or tissue sampling may be performed. 4. 15 mm nodule in the isthmus of the thyroid. Recommend nonemergent ultrasound follow-up if not previously evaluated. Assessment of stenosis of the internal carotid arteries is based on NASCET criteria. ACT 112: Negative or not required by law. Electronically signed by: Anthony Pascal M.D. 12/11/2020 10:46 PM Neck CTA 12/11/20 21:12 CT angio neck with con, CT angio head w con Clinical Indication: MN ^B6 CTR ^worst HOPKINS ever, HTNsive. TECHNIQUE: CT angiography of the head and neck was performed following intravenous administration of 75 mL of Omnipaque 350 injected at a rate of 5 cc/ sec. Multiple MIP images in axial, coronal, and sagittal planes and 3D surfaced rendered images were then acquired using the source data. Automated dose lowering techniques and/or adjustment according to patient size were utilized for this examination. Comparison: Comparison is made to CT neck 12/11/2020 FINDINGS: CTA Neck: A 3 vessel aortic arch is shown. Atherosclerotic plaque is present in the aortic arch and at the origin of the great vessels. There is no atherosclerotic plaque at the origins of the vertebral arteries. The common carotid, external carotid, cervical segments of the internal carotid arteries, and the cervical segments of the vertebral arteries are patent. Retropharyngeal course of the internal carotid arteries noted bilaterally. There is no hemodynamically significant diameter stenosis or dissection present. The left vertebral artery is dominant. There is an 11 mm nodule in the left upper lobe (series 6 image 14). There is a 15 mm thyroid nodule in the isthmus. CTA Head: The anterior and posterior cerebral circulations are patent. No hemodynamically significant stenosis, aneurysm, dissection, or arteriovenous malformation is shown. Incidental note is made of origin of the right MENTAL HEALTH NURSE. Atherosclerotic disease is noted. IMPRESSION: 1. No occlusion, hemodynamically significant stenosis, aneurysm, dissection, or arteriovenous malformation in the major intracranial arteries. 2. No occlusion, hemodynamically significant stenosis, or dissection in the major cervical arteries. 3. 11 mm nodule in the left upper lobe. Correlation with prior imaging is recommended. If prior imaging is unavailable, according to Fleischner criteria, 3 month follow-up CT, PET/CT, or tissue sampling may be performed. 4. 15 mm nodule in the isthmus of the thyroid. Recommend nonemergent ultrasound follow-up if not previously evaluated. Assessment of stenosis of the internal carotid arteries is based on NASCET criteria. ACT 112: Negative or not required by law. Electronically signed by: Anthony Pascal M.D. 12/11/2020 10:[address] 12/11/20 21:14 CT head/brain wo con Clinical Indication: MN ^Headache . Technique: Contiguous axial CT images of the head were acquired from the base of the skull to the vertex without intravenous contrast administration. Images were viewed in brain, subdural and bone windows. Automated dose lowering techniques and/or adjustment according to patient size were utilized for this exam. Comparison: None available at the time of this dictation. Findings: Areas of decreased attenuation are present in the periventricular and subcortical white matter bilaterally consistent with small vessel ischemic disease. Generalized cerebral atrophy with commensurate enlargement of the ventricles, sulci, and cisterns is also present. There is no acute intracranial hemorrhage or evidence of acute territorial infarction. No shift of the midline structures, mass effect, or extra-axial abnormalities are shown. Atherosclerotic calcifications are present in the intracranial segments of the internal carotid arteries. A mucous polyp in the left maxillary sinus is seen. The orbits appear normal. There are no acute fractures of the calvaria or scalp swelling. Impression: No acute intracranial hemorrhage, evidence of acute territorial infarction, or other acute intracranial disease process. ACT 112: Negative or not required by law. Electronically signed by: Anthony Pascal M.D. 12/11/2020 10:35 PM Code Status & VTE Plan VTE Prophylaxis Plan VTE Prophylaxis will be ordered: Yes
[2020-12-12] MEDS ORDERED: hydrALAZINE HCL 20 MG/ML VIAL IV STA (01:51)
[2020-12-12] MEDS ORDERED: BUTALBITAL/ACETAMIN/CAFFEINE TAB PO STA (01:57)
[2020-12-12] MEDS ORDERED: hydrALAZINE HCL 20 MG/ML VIAL IV ONE (03:15)
[2020-12-12 03:52] LABS: Hematocrit (blood only) 47.7 % (37-47); Hemoglobin 15.6 g/dL (12.0-16.0); Mean Corpuscular Hemoglobin 31.2 pg (25-34); Mean Corpuscular Hgb Conc 32.7 g/dL (32-36); Mean Corpuscular Volume 95.4 fL (80-100); Mean Platelet Volume 11.4 fL (7.4-10.4); Platelet Count 353 K/uL (130-400); RDW Coefficient of Variation 13.1 % (11.5-14.5); RDW Standard Deviation 45.3 fL (36.4-46.3); White Blood Count 11.58 K/uL (4.8-10.8)
[2020-12-12] MEDS ORDERED: FUROSEMIDE 40 MG in SYRINGE 0 ML IV ONE (04:00)
[2020-12-12 04:10] LABS: Calcium 9.5 mg/dl (8.5-10.1); Carbon Dioxide 29 mmol/L (21-32); Chloride 102 mmol/L (98-107); Creatinine Clr Calc Pharmacy 44.4 ml/min; Magnesium 2.3 mg/dl (1.8-2.4); Potassium 4.8 mmol/L (3.5-5.1)
[2020-12-12 04:12] LABS: BUN Creatinine Ratio 20.1 (10-20); Blood Urea Nitrogen 25 mg/dl (7-18); Est GFR (Non-African American) 42.3 ml/min; Glucose 199 mg/dl (70-99); Sodium 134 mmol/L (136-145)
[2020-12-12 04:15] LABS: NT Pro B Type Natriuretic Pept 633 pg/ml (0-1800)
[2020-12-12 04:16] LABS: Troponin I < 0.015 ng/ml (0-0.045)
[2020-12-12 04:45] LABS: Base Excess ABG 2.8 mEq/L (-9-1.8); HCO3 ABG 28 mmol/L (19-24); Oxygen Saturation ABG 87.9 % (90-95); PCO2 ABG 42 mmHg (35-46); PO2 ABG 51 mmHg (80-95); pH ABG 7.43 (7.35-7.45)
[2020-12-12 04:46] LABS: Allen Test Pos (Pos)
[2020-12-12] MEDS ORDERED: KETOROLAC TROMETHAMINE 15 MG/ML VIAL IV ONE (05:05)
[2020-12-12] MEDS ORDERED: INFLUENZA VACCINE HIGH DOSE PF 65+ 0.7 ML SYR IM ONE (06:03)
[2020-12-12] MEDS: HEPARIN SOD 5,000 UNIT/0.5 ML VIAL SQ SCH ×3 (06:27→21:43)
[2020-12-12] MEDS ORDERED: NITROGLYCERIN 2% OINTMENT 30GM TUBE EXT ONE (06:30)
[2020-12-12] MEDS ORDERED: MoRPHine SULFATE 2 MG/ML CARP IV PRN (06:30)
--- NOTE | 2020-12-12 07:35 | XRay Report ---
XR chest 1V portable HISTORY: Acute shortness of breath. Hypertensive urgency. COMPARISON: Chest 11/16/2019. FINDINGS: No pneumothorax. No pleural effusions. The cardiac silhouette remains mildly enlarged. No n ew focal lung consolidations to suggest pneumonia. No evidence for pulmonary edema. Stable 1 cm nodul ar density within the left upper lobe. Stable additional 1 cm density within the left midlung zone. IMPRESSION: 1. No acute process within the chest. 2. Stable 1 cm nodular densities within the left upper lobe and left midlung zone. As stated on the p rior studies a dedicated chest CT follow-up is recommended for further evaluation. ACT 112: Positive. There are findings on this exam that require communication between the performing entity and the patient following Patient Test Result Information Act ([place] Act 112) guidelines. Electronically signed by: Nikita Heredia M.D. 12/12/2020 7:33 AM
[2020-12-12] MEDS ORDERED: amLODIPine BESYLATE 5 MG TAB PO ONE (07:54)
[2020-12-12] MEDS: CITALOPRAM 40 MG TAB PO SCH (08:34)
[2020-12-12 09:49] LABS: Appearance Urine Clear (Clear); Bilirubin Urine Negative (Negative); Blood Urine Negative (Negative); Color Urine Yellow; Glucose Urine UA Negative (Negative); Ketones Urine Negative (Negative); Leukocyte Esterase Urine Negative (Negative); Nitrite Urine Negative (Negative); Protein Urine Negative (Negative); Urobilinogen Urine Negative (Negative); pH Urine 6.5 (4.5-7.5)
--- NOTE | 2020-12-12 13:29 | Hospitalist Progress Note ---
Date of Service December 12, 2020 Assessment & Plan (1) Hypertensive urgency: Plan: Acutely worsened blood pressure in the 220s likely related to severe headache. She was given Lopressor IV in the ER and losartan 50 mg p.o. Will give additional hydralazine IV now and as needed for goal blood pressure less than 160 systolic. To treat the pain in the ER she was given a cocktail for her headache including IV fluids, Compazine, Benadryl and Mg with no effect. Will try some fioricet on her now and BP now down into the 150s systolic after the one dose of hydralazine. She is now starting to have worsening hypoxia and I am concerned for the development of flash pulmonary edema. She now has crackles at the left base to auscultation and is requiring more oxygen acutely. CXR now with one dose Lasix now. Transfer to PCU. Presented with severe headache and very high blood pressure with MARCIE Blood pressure is reasonably controlled now Has been feeling much better symptomatically We will continue current medication for blood pressure (2) Hypoxia: Plan: Because of hypoxia remains unknown No history of COPD/asthma/sleep apnea and/or tobacco abuse Considered to be secondary to pulmonary edema but BNP remains low and chest x- ray did not support that Still requiring about 4 L of oxygen to maintain saturation We will observe for now (3) Headache: Plan: Plan as above. If no improvement, will consider alternative pain medications/neurology consultation. Relevant investigations including CT of the head, CTAs are unremarkable Headache is resolved (4) MARCIE (acute kidney injury): Plan: Likely related to poor PO intake and recent NSAID use at home to treat headache. Hold losartan, noting one dose given in ER this evening. Additionally, she is receiving a loop diuretic in setting of possible developing pulmonary edema, which may worsen the creatinine. Could be secondary to dehydration and is complicated by use of INDY inhibitor Hold losartan for now We will give a small amount of intravenous fluid and was advised to drink more fluid (5) Depression: Plan: Cont celexa per home regimen. (6) Pulmonary nodule: Plan: Repeat imaging as outpatient per guidelines. Has had extensive outpatient work-up including PET scan (7) Thyroid nodule: Plan: Incidental finding on imaging. Non-urgent thyroid us recommended as outpatient. (8) DVT prophylaxis: Plan: Heparin Full Code Dispo-to PCU Admission and Anticipated Discharge Date Admission Date: December 11, 2020 Subjective 12/12/2020 The patient was seen and examined in ICU with telemetry status Was admitted with hypertensive urgency/accelerated hypertension with severe headache Has been feeling a lot better since the blood pressure is controlled and denies any other symptoms Review of Systems Review of Systems: All systems reviewed and are unremarkable except as noted below Physical Exam Physical Exam: Lying in bed comfortably Constitutional: well developed, well nourished, + ill appearing and + obese Eyes: PERRL, conjunctivae normal, anicteric sclerae ENMT: external ear and nose normal, oropharynx normal Neck: trachea midline, no thyromegaly Respiratory: no respiratory distress and no cough Auscultation: lungs clear to auscultation bilaterally and + diminished lung sounds Cardiovascular: Rate/Rhythm: regular rate and regular rhythm; not tachycardic Heart Sounds: normal S1 and normal S2; no murmur Extremities: no edema Gastrointestinal (Abdomen): Inspection/Auscultation: normal bowel sounds; abdomen not distended Percussion/Palpation: abdomen soft; abdomen nontender Musculoskeletal: No acute arthritis in any joint Neurologic: Alert, awake and oriented x3. No focal sensory or motor deficit appreciated Results & Data Results & Data ([facility]) Vital Signs (Past 12 Hours) Vital Signs Temp Pulse Pulse Resp BP BP BP 12/12/20 11:00 36.8 C 65 17 134/70 12/12/20 10:00 67 31 H 12/12/20 09:00 63 20 12/12/20 08:30 36.7 C 66 18 116/56 L 12/12/20 08:00 71 19 12/12/20 07:30 75 24 12/12/20 07:00 78 22 12/12/20 06:51 188/89 H 12/12/20 06:30 76 21 12/12/20 06:00 77 19 12/12/20 05:51 76 16 184/89 H 12/12/20 05:30 91 H 27 H 12/12/20 05:16 78 12/12/20 04:32 80 18 161/74 H 12/12/20 04:05 80 18 163/71 H 12/12/20 03:25 81 151/83 H 12/12/20 02:53 107 H 20 158/81 H 12/12/20 02:30 88 20 166/76 H 12/12/20 02:00 79 20 192/76 H 12/12/20 01:35 36.4 C L 69 16 215/87 H 12/12/20 01:28 36.4 C L 69 20 215/87 H Pulse Ox 12/12/20 11:00 92 12/12/20 10:00 94 12/12/20 09:00 95 12/12/20 08:30 92 12/12/20 08:00 12/12/20 07:30 98 12/12/20 07:00 100 12/12/20 06:51 12/12/20 06:30 92 12/12/20 06:00 95 12/12/20 05:51 96 12/12/20 05:30 12/12/20 05:16 12/12/20 04:32 92 12/12/20 04:05 91 12/12/20 03:25 90 12/12/20 02:53 94 12/12/20 02:30 87 L 12/12/20 02:00 90 12/12/20 01:35 92 12/12/20 01:28 90 Laboratory Results Short CBC 12/11/20 12/12/20 Range/Units 21:19 03:40 WBC 10.53 11.58 H (4.8-10.8) K/uL Hgb 15.4 15.6 (12.0-16.0) g/dL Hct 48.1 H 47.7 H (37-47) % Plt Count 356 353 (130-400) K/uL BMP 12/11/20 12/12/20 21:19 03:40 Sodium 138 134 L Potassium 5.1 4.8 Chloride 102 102 Carbon Dioxide 33 H 29 BUN 28 H 25 H Creatinine 1.27 H 1.23 H Glucose 117 H 199 H Calcium 9.7 9.5 Cardiac Enzymes 12/12/20 12/12/20 Range/Units 03:40 09:13 Troponin I < 0.015 < 0.015 (0-0.045) ng/ml Urine 12/12/20 Range/Units 06:40 Urine Color Yellow Urine Appearance Clear (Clear) Urine pH 6.5 (4.5-7.5) Ur Specific [place] 1.010 (1.000-1.030) Urine Protein Negative (Negative) Urine Glucose (UA) Negative (Negative) Medications Administered Current Inpatient Medications Acetaminophen (Acetaminophen 325 Mg Tab) 650 mg PO Q4H PRN PRN Reason: Pain or Fever Stop: 01/11/21 01:34 Last Admin: 12/12/20 06:05 Dose: 650 mg Documented by: Amlodipine Besylate (Amlodipine Besylate 5 Mg Tab) 5 mg PO QAM [facility] Stop: 01/12/21 08:59 Citalopram Hydrobromide (Citalopram 40 Mg Tab) 40 mg PO [facility] Stop: 01/11/21 08:59 Last Admin: 12/12/20 08:34 Dose: 40 mg Documented by: Heparin Sodium (Porcine) (Heparin Sod 5,000 Unit/0.5 Ml Vial) 5,000 units SQ Q8 [facility] Stop: 01/11/21 05:59 Last Admin: 12/12/20 06:27 Dose: 5,000 units Documented by: Sodium Chloride (Nss 1000ml) 1,000 mls @ 80 mls/hr IV .[id number] [facility] Stop: 12/14/20 02:29 Metoprolol Tartrate (Metoprolol Tartrate 1 Mg/Ml Vial) 5 mg IV Q5M PRN PRN Reason: Hypertension Stop: 01/10/21 23:11 Last Admin: 12/11/20 23:18 Dose: 5 mg Documented by: Morphine Sulfate (Morphine Sulfate 2 Mg/Ml Carp) 2 mg IV Q2H PRN PRN Reason: Pain or headache Stop: 12/26/20 06:29 Last Admin: 12/12/20 06:46 Dose: 2 mg Documented by: Ondansetron HCl (Ondansetron Inj 2 Mg/Ml 2 Ml Vial) 4 mg IV Q6H PRN PRN Reason: Nausea Stop: 01/11/21 01:34 Polyethylene Glycol (Polyethylene (Miralax) 17 Gm Pack) 17 gm PO DAILY PRN PRN Reason: Constipation Stop: 01/11/21 01:34
[2020-12-12] MEDS: SODIUM CHLORIDE 0.9% 1000ML 1,000 ML IV SCH (13:44)
--- NOTE | 2020-12-12 14:04 | Cardiology Consultation ---
Date of Consultation December 12, 2020 Assessment & Plan (1) Hypertensive urgency: Agree with transitioning her to amlodipine. Blood pressure appears improved, as does her headache symptoms. Her heart rate is in the 60s, will therefore avoid any AV juan blockers. Update resting echocardiogram for completeness especially given hypoxia. (2) Pulmonary nodule: Non-smoker, routine follow-up CT to be performed as outpatient. (3) Thyroid nodule: Incidental thyroid nodule, follow-up as outpatient. (4) Hypoxia: No subjective shortness of breath, but ongoing hypoxia, and her PO2 at the time of arterial blood gas overnight with only 51. Update echocardiogram. We will need to be cautious with regards to IV fluid administration to avoid volume overload. (5) MARCIE (acute kidney injury): Previous baseline creatinine of 0.821 mg/dL, last evening and again today, creatinine 1.27 and 1.23, and received iodinated contrast material. Proceed with gentle hydration. History of Present Illness Attending Physician: Kristin Renteria MD History of Present Illness Kika Vaqsuez is a 75 year old female seen in cardiology consultation per the request of Dr Storey for the evaluation of hypertensive urgency and hypoxia. Patient does not routinely follow with cardiology as an outpatient. She notes that for the last several days she has had a waxing and waning headache with elevated blood pressure readings at home. She has a history of hypertension and states that she had been placed on losartan 25 mg daily a few months ago. Few days ago, her primary care provider had recommended that she transition to losartan 50 mg daily however the patient has yet to make this change. She notes a lot of stress at home. She cares for her who suffers from dementia. She presented to the emergency room overnight last night with severe headache. Her initial blood pressure reading at 1926 yesterday was 214/133, and a follow- up reading soon thereafter was 232/[address] CT angiogram of the head and neck revealed no acute cerebral pathology. There was an 11 mm incidental pulmonary nodule in the left upper lobe. A 15 mm nodule was noted in the thyroid. No acute pathology was noted on chest x-ray. The patient received treatment including 2 doses of IV hydralazine, 10 mg, a dose of oral Fioricet, Toradol, topical nitroglycerin, and then will amlodipine 5 mg this morning. At the time I had assessed her earlier this morning her blood pressure had normalized, with systolic blood pressure reading of 110 earlier this morning the time of my assessment, most recently 134/70 as of 11 AM. Her headache has resolved. She denies chest discomfort or subjective shortness of breath. She however had been noted to be hypoxic, and the time my assessment was still requiring 4 L/min of oxygen supplementation to maintain a pulse oximetry 92%. Allergies Allergy/AdvReac Type Severity Reaction Status Date / Time No Known Drug Allergies Allergy Unknown Verified 12/11/20 23:15 Home Medications Medication Instructions Recorded Confirmed Type omega 2-zkr-vux-fish oil 1,000 mg 1 cap PO QAM 05/16/18 12/11/20 History (120 mg-180 mg) capsule (Fish Oil) citalopram 40 mg tablet (Celexa) 40 mg PO QAM 08/14/19 12/11/20 History ibuprofen-diphenhydramine citrate 1 cap PO HS 04/03/20 12/11/20 History 200 mg-38 mg tablet (Ibuprofen PM) losartan 50 mg tablet 50 mg PO DAILY 12/11/20 12/11/20 History Patient History Medical History Acid reflux disease No recent issues Anxiety disorder celexa Benign hypertension Chronic cough Pt states she followed up with Dr. Marley regarding her cough and he told her "it's just allergies". Chronic/stable- actually mildly improved Depression Diabetes mellitus Diet controlled- Hgb A1C 04/11/20 was 6.5 History of migraine with aura 08/14/2019--pt came to [facility] with complaints of stroke like symptoms and per pt stroke was ruled out and she was diagnosed with migraines Hyperlipidemia No meds Obesity Sleep apnea Cannot tolerate device Surgical History History of carpal tunnel release right History of cataract surgery BL History of colonoscopy History of endoscopic sinus surgery 10/2018 History of esophagogastroduodenoscopy (EGD) History of exploratory laparotomy History of lumbar discectomy History of pancreatic surgery had benign tumor removed History of total abdominal hysterectomy with unilateral oopherectomy Hx of bladder repair surgery Hx of varicose vein ligation and stripping both legs Family History Mother Myocardial infarction Stroke Father Stroke Grandmother (Maternal) Family history of diabetes mellitus Sister Family history of diabetes mellitus Daughter Family hx of colon cancer Other No family history of adverse response to anesthesia Denies family history of Ovarian cancer Prostate cancer Breast cancer Colorectal cancer Social History Smoking Status: Never smoker Second Hand Exposure: Yes; Hx Alcohol Use: No Hx Substance Use: No Preferred Language: Sami Communication Ability: Effective Crusher Required: No Beliefs That Will Affect Care: None Current Living Situation: Spouse current occupational status: retired Feels Safe at Home: Yes caffeine: Yes (coffee) Dental Care, Regularly: Yes Physical Activity Frequency: Does not Exercise Seatbelt Use: always Sunscreen Use: No Assistive Devices: Glasses Review of Systems Review of Systems: All systems reviewed & are unremarkable except as noted in HPI & below Physical Exam Physical Exam: Temp Pulse Resp BP Pulse Ox 36.8 C 65 17 134/70 92 12/12/20 11:00 12/12/20 11:00 12/12/20 11:00 12/12/20 11:00 12/12/20 11:00 Constitutional: well developed; no acute distress Respiratory: normal respiratory effort, lungs clear to auscultation Cardiovascular: RRR, no murmur, no edema Gastrointestinal (Abdomen): normal bowel sounds, soft, nontender, no hepatosplenomegaly Neurologic: PERRL, EOMI, accommodation nl, no face palsy, no dysarthria Results & Data ([facility]) Vital Signs (Past 12 Hours) Vital Signs Temp Pulse Pulse Resp BP BP BP 12/12/20 11:00 36.8 C 65 17 134/70 12/12/20 10:00 67 31 H 12/12/20 09:00 63 20 12/12/20 08:30 36.7 C 66 18 116/56 L 12/12/20 08:00 71 19 12/12/20 07:30 75 24 12/12/20 07:00 78 22 12/12/20 06:51 188/89 H 12/12/20 06:30 76 21 12/12/20 06:00 77 19 12/12/20 05:51 76 16 184/89 H 12/12/20 05:30 91 H 27 H 12/12/20 05:16 78 12/12/20 04:32 80 18 161/74 H 12/12/20 04:05 80 18 163/71 H 12/12/20 03:25 81 151/83 H 12/12/20 02:53 107 H 20 158/81 H 12/12/20 02:30 88 20 166/76 H 12/12/20 02:00 79 20 192/76 H Pulse Ox 12/12/20 11:00 92 12/12/20 10:00 94 12/12/20 09:00 95 12/12/20 08:30 92 12/12/20 08:00 12/12/20 07:30 98 12/12/20 07:00 100 12/12/20 06:51 12/12/20 06:30 92 12/12/20 06:00 95 12/12/20 05:51 96 12/12/20 05:30 12/12/20 05:16 12/12/20 04:32 92 12/12/20 04:05 91 12/12/20 03:25 90 12/12/20 02:53 94 12/12/20 02:30 87 L 12/12/20 02:00 90 Diagnostic Findings EKG performed 12/12/2020 at 4:34 AM revealed normal sinus rhythm 85 bpm, normal EKG. Patient had a nonischemic stress echocardiogram performed as an outpatient in April, as part of a preoperative evaluation with noted below average exercise tolerance, completing 2 minutes 59 seconds on the Roger protocol. Left ventricular wall motion was normal at rest and with stress. Mild concentric left ventricular hypertrophy noted with normal LVEF, pulmonary artery systolic pressure 49 mmHg.
[2020-12-13] MEDS: SODIUM CHLORIDE 0.9% 1000ML 1,000 ML IV SCH (02:20)
[2020-12-13 05:11] LABS: Basophils # (auto) 0.02 K/uL (0-0.2); Basophils % (auto) 0.2 %; Eosinophils # (auto) 0.06 K/uL (0-0.5); Eosinophils % (auto) 0.5 %; Hematocrit (blood only) 44.9 % (37-47); Hemoglobin 14.5 g/dL (12.0-16.0); Immature Granulocytes # (auto) 0.04 K/uL (0.00-0.02); Immature Granulocytes % (auto) 0.3 %; Lymphocytes # (auto) 4.02 K/uL (1.2-3.4); Lymphocytes % (auto) 31.2 %; Mean Corpuscular Hemoglobin 31.3 pg (25-34); Mean Corpuscular Hgb Conc 32.3 g/dL (32-36); Mean Corpuscular Volume 96.8 fL (80-100); Mean Platelet Volume 11.6 fL (7.4-10.4); Monocytes # (auto) 1.14 K/uL (0.11-0.59); Monocytes % (auto) 8.8 %; Neutrophils # (auto) 7.62 K/uL (1.4-6.5); Platelet Count 341 K/uL (130-400); RDW Coefficient of Variation 13.5 % (11.5-14.5); RDW Standard Deviation 47.8 fL (36.4-46.3); Red Blood Count 4.64 M/uL (4.2-5.4)
[2020-12-13 05:29] LABS: BUN Creatinine Ratio 34.7 (10-20); Calcium 9.1 mg/dl (8.5-10.1); Creatinine Clr Calc Pharmacy 44.1 ml/min; Est GFR (African American) 48.1 ml/min; Est GFR (Non-African American) 41.5 ml/min; Magnesium 2.3 mg/dl (1.8-2.4); Potassium 4.2 mmol/L (3.5-5.1)
[2020-12-13] MEDS: HEPARIN SOD 5,000 UNIT/0.5 ML VIAL SQ SCH ×3 (05:56→21:49)
--- NOTE | 2020-12-13 06:11 | Electrocardiogram Report ---
Test Reason : Blood Pressure : / mmHG Vent. Rate : 085 BPM Atrial Rate : 085 BPM P-R Int : 154 ms QRS Dur : 086 ms QT Int : 410 ms P-R-T Axes : 068 071 060 degrees QTc Int : 487 ms Normal sinus rhythm Possible Left atrial enlargement Borderline ECG When compared with ECG of 14-AUG-2019 13:50, No significant change was found Confirmed by Dc Pinto ([id number]) on 12/13/2020 6:10:45 AM Referred By: REFERRED SELF Confirmed By:Dc Pinto
[2020-12-13] MEDS: CITALOPRAM 40 MG TAB PO SCH (08:38)
[2020-12-13] MEDS: amLODIPine BESYLATE 5 MG TAB PO SCH (08:38)
--- NOTE | 2020-12-13 09:27 | Cardiology Progress Note ---
Date of Service December 13, 2020 Assessment & Plan (1) Hypertensive urgency: Plan: DC IV fluids DC topical nitrates. Continue amlodipine. Reassess BP after am amlodipine, consider resuming losartan (with caution as renal function worse than baseline). Hypoxia resolved. increase activity, perhaps DC later today . (2) Pulmonary nodule: Plan: Non-smoker, routine follow-up CT to be performed as outpatient. (3) Thyroid nodule: Plan: Incidental thyroid nodule, follow-up as outpatient. (4) Hypoxia: Plan: No subjective shortness of breath, but ongoing hypoxia, and her PO2 at the time of arterial blood gas overnight with only 51. Update echocardiogram. We will need to be cautious with regards to IV fluid administration to avoid volume overload. (5) MARCIE (acute kidney injury): Plan: Previous baseline creatinine of 0.821 mg/dL, last evening and again today, creatinine 1.27 and 1.23, and received iodinated contrast material. Proceed with gentle hydration. Admission and Anticipated Discharge Date Admission Date: December 11, 2020 Subjective Pt seen in follow up. Feels well.No additional headache. BP still a little high, however, significantly improved. Telemetry reveals SR in the 70s with occasional PVCs Review of Systems Review of Systems: All systems reviewed & are unremarkable except as noted in HPI & below Physical Exam 2 Physical Exam: Temp Pulse Resp BP Pulse Ox 36.6 C 56 L 16 162/76 H 100 12/13/20 04:29 12/13/20 04:29 12/13/20 04:29 12/13/20 04:29 12/13/20 04:29 Constitutional: WD/WN, vitals as above Respiratory: normal respiratory effort, lungs clear to auscultation Cardiovascular: RRR, no murmur, no edema Gastrointestinal (Abdomen): normal bowel sounds, soft, nontender, no hepatosplenomegaly Neurologic: PERRL, EOMI, accommodation nl, no face palsy, no dysarthria Results & Data ([facility]) Vital Signs (Past 12 Hours) Vital Signs Temp Pulse Pulse Resp BP Pulse Ox 12/13/20 04:29 36.6 C 56 L 16 162/76 H 100 12/13/20 03:23 63 12/12/20 23:53 64 16 157/75 H 100 Diagnostic Findings Echo performed 12/12: Normal LV wall motion, LVEF 65-70% Grade I diastolic dysfunction No significant valve disease
[2020-12-13] MEDS: LOSARTAN POTASSIUM 25 MG TAB PO SCH (13:34)
--- NOTE | 2020-12-13 16:12 | Hospitalist Progress Note ---
Date of Service December 13, 2020 Assessment & Plan (1) Hypertensive urgency: Plan: Acutely worsened blood pressure in the 220s likely related to severe headache. She was given Lopressor IV in the ER and losartan 50 mg p.o. Will give additional hydralazine IV now and as needed for goal blood pressure less than 160 systolic. To treat the pain in the ER she was given a cocktail for her headache including IV fluids, Compazine, Benadryl and Mg with no effect. Will try some fioricet on her now and BP now down into the 150s systolic after the one dose of hydralazine. She is now starting to have worsening hypoxia and I am concerned for the development of flash pulmonary edema. She now has crackles at the left base to auscultation and is requiring more oxygen acutely. CXR now with one dose Lasix now. Transfer to PCU. Presented with severe headache and very high blood pressure with MARCIE Blood pressure is reasonably controlled now Has been feeling much better symptomatically We will continue current medication for blood pressure Blood pressure noted to be high this morning Lisinopril has been restarted and continue amlodipine Advised to drink more fluid to improve kidney function (2) Hypoxia: Plan: Because of hypoxia remains unknown No history of COPD/asthma/sleep apnea and/or tobacco abuse Considered to be secondary to pulmonary edema but BNP remains low and chest x- ray did not support that Still requiring about 4 L of oxygen to maintain saturation Has not been requiring any oxygen to maintain saturation (3) Headache: Plan: Plan as above. If no improvement, will consider alternative pain medications/neurology consultation. Relevant investigations including CT of the head, CTAs are unremarkable Headache is resolved (4) MARCIE (acute kidney injury): Plan: Likely related to poor PO intake and recent NSAID use at home to treat headache. Hold losartan, noting one dose given in ER this evening. Additionally, she is receiving a loop diuretic in setting of possible developing pulmonary edema, which may worsen the creatinine. Could be secondary to dehydration and is complicated by use of INDY inhibitor Hold losartan for now-(restarted We will give a small amount of intravenous fluid and was advised to drink more fluid IV fluid has been discontinued due to fear of increasing blood pressure Advised to drink more fluid and monitor PRP tomorrow (5) Depression: Plan: Cont celexa per home regimen. (6) Pulmonary nodule: Plan: Repeat imaging as outpatient per guidelines. Has had extensive outpatient work-up including PET scan (7) Thyroid nodule: Plan: Incidental finding on imaging. Non-urgent thyroid us recommended as outpatient. (8) DVT prophylaxis: Plan: Heparin Full Code Dispo-to PCU Admission and Anticipated Discharge Date Admission Date: December 11, 2020 Subjective 12/12/2020 The patient was seen and examined in ICU with telemetry status Was admitted with hypertensive urgency/accelerated hypertension with severe headache Has been feeling a lot better since the blood pressure is controlled and denies any other symptoms 12/13/2020 The patient was seen and examined in telemetry unit She has been feeling much better but the blood pressure remains elevated at systolic 170s No more headache and does not require any more oxygen to maintain saturation Review of Systems Review of Systems: All systems reviewed and are unremarkable except as noted below Physical Exam Physical Exam: Lying in bed comfortably Constitutional: well developed, well nourished, + ill appearing and + obese Eyes: PERRL, conjunctivae normal, anicteric sclerae ENMT: external ear and nose normal, oropharynx normal Neck: trachea midline, no thyromegaly Respiratory: no respiratory distress and no cough Auscultation: lungs clear to auscultation bilaterally and + diminished lung sounds Cardiovascular: Rate/Rhythm: regular rate and regular rhythm; not tachycardic Heart Sounds: normal S1 and normal S2; no murmur Extremities: no edema Gastrointestinal (Abdomen): Inspection/Auscultation: normal bowel sounds; abdomen not distended Percussion/Palpation: abdomen soft; abdomen nontender Neurologic: Alert awake and oriented x3. No focal sensory and motor deficit appreciated Results & Data Results & Data ([facility]) Vital Signs (Past 12 Hours) Vital Signs Temp Pulse Resp BP Pulse Ox 12/13/20 15:52 36.8 C 63 18 161/78 H 96 12/13/20 12:00 36.8 C 62 18 171/77 H 100 12/13/20 04:29 36.6 C 56 L 16 162/76 H 100 Laboratory Results Short CBC 12/13/20 Range/Units 04:51 WBC 12.90 H (4.8-10.8) K/uL Hgb 14.5 (12.0-16.0) g/dL Hct 44.9 (37-47) % Plt Count 341 (130-400) K/uL BMP 12/13/20 04:51 Sodium 136 Potassium 4.2 Chloride 104 Carbon Dioxide 30 BUN 43 H D Creatinine 1.25 H Glucose 126 H Calcium 9.1 Medications Administered Current Inpatient Medications Acetaminophen (Acetaminophen 325 Mg Tab) 650 mg PO Q4H PRN PRN Reason: Pain or Fever Stop: 01/11/21 01:34 Last Admin: 12/12/20 06:05 Dose: 650 mg Documented by: Amlodipine Besylate (Amlodipine Besylate 5 Mg Tab) 5 mg PO [facility] Stop: 01/12/21 08:59 Last Admin: 12/13/20 08:38 Dose: 5 mg Documented by: Citalopram Hydrobromide (Citalopram 40 Mg Tab) 40 mg PO [facility] Stop: 01/11/21 08:59 Last Admin: 12/13/20 08:38 Dose: 40 mg Documented by: Heparin Sodium (Porcine) (Heparin Sod 5,000 Unit/0.5 Ml Vial) 5,000 units SQ Q8 [facility] Stop: 01/11/21 05:59 Last Admin: 12/13/20 13:34 Dose: 5,000 units Documented by: Losartan Potassium (Losartan Potassium 25 Mg Tab) 25 mg PO [facility] Stop: 01/12/21 12:59 Last Admin: 12/13/20 13:34 Dose: 25 mg Documented by: Metoprolol Tartrate (Metoprolol Tartrate 1 Mg/Ml Vial) 5 mg IV Q5M PRN PRN Reason: Hypertension Stop: 01/10/21 23:11 Last Admin: 12/11/20 23:18 Dose: 5 mg Documented by: Morphine Sulfate (Morphine Sulfate 2 Mg/Ml Carp) 2 mg IV Q2H PRN PRN Reason: Pain or headache Stop: 12/26/20 06:29 Last Admin: 12/12/20 06:46 Dose: 2 mg Documented by: Ondansetron HCl (Ondansetron Inj 2 Mg/Ml 2 Ml Vial) 4 mg IV Q6H PRN PRN Reason: Nausea Stop: 01/11/21 01:34 Polyethylene Glycol (Polyethylene (Miralax) 17 Gm Pack) 17 gm PO DAILY PRN PRN Reason: Constipation Stop: 01/11/21 01:34
[2020-12-14 06:12] LABS: BUN Creatinine Ratio 32.1 (10-20); Calcium 9.2 mg/dl (8.5-10.1); Creatinine Clr Calc Pharmacy 51.1 ml/min; Est GFR (African American) 57.3 ml/min; Est GFR (Non-African American) 49.5 ml/min
[2020-12-14] MEDS: HEPARIN SOD 5,000 UNIT/0.5 ML VIAL SQ SCH (06:26)
[2020-12-14] MEDS: amLODIPine BESYLATE 5 MG TAB PO SCH (09:10)
[2020-12-14] MEDS: CITALOPRAM 40 MG TAB PO SCH (09:10)
[2020-12-14] MEDS: LOSARTAN POTASSIUM 25 MG TAB PO SCH (09:11)
--- NOTE | 2020-12-14 10:38 | Hospitalist Progress Note ---
Date of Service December 14, 2020 Assessment & Plan (1) Hypertensive urgency: Plan: Acutely worsened blood pressure in the 220s likely related to severe headache. She was given Lopressor IV in the ER and losartan 50 mg p.o. Will give additional hydralazine IV now and as needed for goal blood pressure less than 160 systolic. To treat the pain in the ER she was given a cocktail for her headache including IV fluids, Compazine, Benadryl and Mg with no effect. Will try some fioricet on her now and BP now down into the 150s systolic after the one dose of hydralazine. She is now starting to have worsening hypoxia and I am concerned for the development of flash pulmonary edema. She now has crackles at the left base to auscultation and is requiring more oxygen acutely. CXR now with one dose Lasix now. Transfer to PCU. Presented with severe headache and very high blood pressure with MARCIE Blood pressure is reasonably controlled now Has been feeling much better symptomatically We will continue current medication for blood pressure Blood pressure noted to be high this morning Lisinopril has been restarted and continue amlodipine Advised to drink more fluid to improve kidney function Blood pressure seems to be reasonable at around 160s over 70s (2) Hypoxia: Plan: Because of hypoxia remains unknown No history of COPD/asthma/sleep apnea and/or tobacco abuse Considered to be secondary to pulmonary edema but BNP remains low and chest x- ray did not support that Still requiring about 4 L of oxygen to maintain saturation Has not been requiring any oxygen to maintain saturation We will get to do steps O2 saturation test before discharge this afternoon (3) Headache: Plan: Plan as above. If no improvement, will consider alternative pain medications/neurology consultation. Relevant investigations including CT of the head, CTAs are unremarkable Headache is resolved (4) MARCIE (acute kidney injury): Plan: Likely related to poor PO intake and recent NSAID use at home to treat headache. Hold losartan, noting one dose given in ER this evening. Additionally, she is receiving a loop diuretic in setting of possible developing pulmonary edema, which may worsen the creatinine. Could be secondary to dehydration and is complicated by use of INDY inhibitor Hold losartan for now-(restarted We will give a small amount of intravenous fluid and was advised to drink more fluid IV fluid has been discontinued due to fear of increasing blood pressure Advised to drink more fluid and monitor PRP tomorrow Her renal function has been normalized (5) Depression: Plan: Cont celexa per home regimen. (6) Pulmonary nodule: Plan: Repeat imaging as outpatient per guidelines. Has had extensive outpatient work-up including PET scan (7) Thyroid nodule: Plan: Incidental finding on imaging. Non-urgent thyroid us recommended as outpatient. (8) DVT prophylaxis: Plan: Heparin Full Code Dispo-to PCU Will be discharged home this afternoon Admission and Anticipated Discharge Date Admission Date: December 11, 2020 Subjective 12/12/2020 The patient was seen and examined in ICU with telemetry status Was admitted with hypertensive urgency/accelerated hypertension with severe headache Has been feeling a lot better since the blood pressure is controlled and denies any other symptoms 12/13/2020 The patient was seen and examined in telemetry unit She has been feeling much better but the blood pressure remains elevated at systolic 170s No more headache and does not require any more oxygen to maintain saturation 12/14/2020 The patient was seen and examined in telemetry unit She denies any symptoms today No headache, no shortness of breath, chest pain or palpitation She has been ambulating in the room without any symptoms Review of Systems Review of Systems: All systems reviewed and are unremarkable except as noted below Physical Exam Physical Exam: Lying in bed comfortably Constitutional: well developed, well nourished, + ill appearing and + obese Eyes: PERRL, conjunctivae normal, anicteric sclerae ENMT: external ear and nose normal, oropharynx normal Neck: trachea midline, no thyromegaly Respiratory: no respiratory distress and no cough Auscultation: lungs clear to auscultation bilaterally and + diminished lung sounds Cardiovascular: Rate/Rhythm: regular rate and regular rhythm; not tachycardic Heart Sounds: normal S1 and normal S2; no murmur Extremities: no edema Gastrointestinal (Abdomen): Inspection/Auscultation: normal bowel sounds; abdomen not distended Percussion/Palpation: abdomen soft; abdomen nontender Musculoskeletal: No acute arthritis in any joint Neurologic: Alert, awake and oriented x3. No focal sensory and motor deficit appreciated Results & Data Results & Data ([facility]) Vital Signs (Past 12 Hours) Vital Signs Temp Pulse Pulse Resp BP Pulse Ox 12/14/20 07:33 37 C 65 12 166/61 H 92 12/14/20 07:32 37.1 C 75 12 162/60 H 98 12/14/20 00:00 60 Laboratory Results BMP 12/14/20 05:25 Sodium 138 Potassium 5.0 D Chloride 105 Carbon Dioxide 33 H BUN 35 H Creatinine 1.08 Glucose 116 H Calcium 9.2 Medications Administered Current Inpatient Medications Acetaminophen (Acetaminophen 325 Mg Tab) 650 mg PO Q4H PRN PRN Reason: Pain or Fever Stop: 01/11/21 01:34 Last Admin: 12/12/20 06:05 Dose: 650 mg Documented by: Amlodipine Besylate (Amlodipine Besylate 5 Mg Tab) 5 mg PO [facility] Stop: 01/12/21 08:59 Last Admin: 12/14/20 09:10 Dose: 5 mg Documented by: Citalopram Hydrobromide (Citalopram 40 Mg Tab) 40 mg PO [facility] Stop: 01/11/21 08:59 Last Admin: 12/14/20 09:10 Dose: 40 mg Documented by: Heparin Sodium (Porcine) (Heparin Sod 5,000 Unit/0.5 Ml Vial) 5,000 units SQ Q8 [facility] Stop: 01/11/21 05:59 Last Admin: 12/14/20 06:26 Dose: 5,000 units Documented by: Losartan Potassium (Losartan Potassium 25 Mg Tab) 25 mg PO [facility] Stop: 01/12/21 12:59 Last Admin: 12/14/20 09:11 Dose: 25 mg Documented by: Metoprolol Tartrate (Metoprolol Tartrate 1 Mg/Ml Vial) 5 mg IV Q5M PRN PRN Reason: Hypertension Stop: 01/10/21 23:11 Last Admin: 12/11/20 23:18 Dose: 5 mg Documented by: Morphine Sulfate (Morphine Sulfate 2 Mg/Ml Carp) 2 mg IV Q2H PRN PRN Reason: Pain or headache Stop: 12/26/20 06:29 Last Admin: 12/12/20 06:46 Dose: 2 mg Documented by: Ondansetron HCl (Ondansetron Inj 2 Mg/Ml 2 Ml Vial) 4 mg IV Q6H PRN PRN Reason: Nausea Stop: 01/11/21 01:34 Polyethylene Glycol (Polyethylene (Miralax) 17 Gm Pack) 17 gm PO DAILY PRN PRN Reason: Constipation Stop: 01/11/21 01:34
[2020-12-14 11:31] LABS: Basophils # (auto) 0.02 K/uL (0-0.2); Basophils % (auto) 0.2 %; Eosinophils # (auto) 0.34 K/uL (0-0.5); Eosinophils % (auto) 3.3 %; Hematocrit (blood only) 47.8 % (37-47); Immature Granulocytes # (auto) 0.03 K/uL (0.00-0.02); Immature Granulocytes % (auto) 0.3 %; Lymphocytes # (auto) 4.14 K/uL (1.2-3.4); Lymphocytes % (auto) 40.3 %; Mean Corpuscular Hemoglobin 31.1 pg (25-34); Mean Corpuscular Hgb Conc 31.4 g/dL (32-36); Mean Platelet Volume 12.3 fL (7.4-10.4); Monocytes # (auto) 0.94 K/uL (0.11-0.59); Monocytes % (auto) 9.2 %; Neutrophils % (auto) 46.7 %; Platelet Count 375 K/uL (130-400); RDW Coefficient of Variation 13.8 % (11.5-14.5); RDW Standard Deviation 50.2 fL (36.4-46.3); Red Blood Count 4.83 M/uL (4.2-5.4); White Blood Count 10.27 K/uL (4.8-10.8)
--- NOTE | 2020-12-15 07:12 | Discharge Summary ---
Date of Service December 15, 2020 Admission HPI Per Admitting Provider She was recently seen by her PCP yesterday where her blood pressure was 152/90 and her losartan was changed from 25 mg p.o. daily to 50 mg p.o. daily. She presents this evening because her headache has become worse in the last 24 to 48 hours. She did report some left hand tingling that lasted a few seconds. She otherwise denied any strokelike symptoms. She initially felt that her back or neck was out of alignment, but realized manipulation did not help her headache. 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 Review of outpatient records consistently shows a normal blood pressure on 25 mg of losartan. She is a non- smoker and does not drink alcohol. She reports an average intake of salt. Her kidney function is slightly elevated from baseline with a creatinine of 1.3. In the ER CT head with angiography of the head and neck did not show any aneurysm or dissection and there is no intracranial hemorrhage present. She was markedly hypertensive in the ER with a blood pressure of 214/133. She was treated with a cocktail to help her headache and given parenteral antihypertensives. She denies any chest pain, abdominal pain, fevers, chills, urinary symptoms, visual symptoms, difficulty swallowing difficulty speaking or other issues. She she currently denies any sensory deficits. On the floor her BP was 215/87. She was given one dose of hydralazine with and improvement in her blood pressure to 166/76 an then 150 systolic. She still reported severe head pain. A fiorcet had been ordered but not given yet because of the EMR downtime. This will be given shortly. She then reported some shortness of breath and new crackles at the left lung base were noted on bedside re-evaluation. She was now oxygenating 92% on 4LPM. A CXR was ordered and is pending. Admission Exam Per Admitting Provider Physical Exam: CONSTITUTIONAL: obese, vitals as above, generally ill- appearing, NAD, appear uncomfortable from pain EYES: EOMI bilaterally, PERRL, normal conjunctivae, no scleral icterus, no fundoscopic abnormality ENT: external ear and nose normal, MMM NECK: trachea midline RESPIRATORY: clear to auscultation bilaterally, no crackles, rales or wheezes, normal respiratory effort CARDIOVASCULAR: regular rate and rhythm, S1 and 2 heard without murmurs, gallops or rubs, no JVD, no peripheral edema CHEST: inspection of chest was normal GASTROINTESTINAL: soft, nontender, ND MUSCULOSKELETAL: strength 5/5 throughout, head is normocephalic and atraumatic SKIN: warm and dry, no rashes NEUROLOGIC: CN 2-12 intact, no sensory deficit, normal cognition, normal speech, no tremor, no gross foal deficit. Gait not assessed as patient uncomfortable. PSYCHIATRIC: alert cooperative and oriented to person, place and time. Principal Diagnosis Hypertensive urgency, hypoxia-resolved, headache, MARCIE-improved, history of pulmonary nodule with ongoing outpatient follow-up Discharge Exam Constitutional well developed, well nourished, + ill appearing and + obese Eyes PERRL, conjunctivae normal, anicteric sclerae ENMT external ear and nose normal, oropharynx normal Neck trachea midline, no thyromegaly Respiratory no respiratory distress and no cough Auscultation: lungs clear to auscultation bilaterally and + diminished lung sounds Cardiovascular Rate/Rhythm: regular rate and regular rhythm; not tachycardic Heart Sounds: normal S1 and normal S2; no murmur Extremities: no edema Gastrointestinal (Abdomen) Inspection/Auscultation: normal bowel sounds; abdomen not distended Percussion/Palpation: abdomen soft; abdomen nontender Discharge Data Allergies Allergy/AdvReac Type Severity Reaction Status Date / Time No Known Drug Allergies Allergy Unknown Verified 12/11/20 23:15 Consultations 12/11/20 23:49 ED Decision to Admit Stat 12/12/20 06:31 Consult Cardiology Routine Ordered Studies 12/11/20 21:12 CT angio head w con Stat CT angio neck with con Stat 12/11/20 21:14 CT head/brain wo con Stat Hospital Course (1) Hypertensive urgency: Acutely worsened blood pressure in the 220s likely related to severe headache. She was given Lopressor IV in the ER and losartan 50 mg p.o. Will give additional hydralazine IV now and as needed for goal blood pressure less than 160 systolic. To treat the pain in the ER she was given a cocktail for her headache including IV fluids, Compazine, Benadryl and Mg with no effect. Will try some fioricet on her now and BP now down into the 150s systolic after the one dose of hydralazine. She is now starting to have worsening hypoxia and I am concerned for the development of flash pulmonary edema. She now has crackles at the left base to auscultation and is requiring more oxygen acutely. CXR now with one dose Lasix now. Transfer to PCU. Presented with severe headache and very high blood pressure with MARCIE Blood pressure is reasonably controlled now Has been feeling much better symptomatically We will continue current medication for blood pressure Blood pressure noted to be high this morning Lisinopril has been restarted and continue amlodipine Advised to drink more fluid to improve kidney function Blood pressure seems to be reasonable at around 160s over 70s (2) Hypoxia: Because of hypoxia remains unknown No history of COPD/asthma/sleep apnea and/or tobacco abuse Considered to be secondary to pulmonary edema but BNP remains low and chest x- ray did not support that Still requiring about 4 L of oxygen to maintain saturation Has not been requiring any oxygen to maintain saturation We will get to do steps O2 saturation test before discharge this afternoon (3) Headache: Plan as above. If no improvement, will consider alternative pain medications/neurology consultation. Relevant investigations including CT of the head, CTAs are unremarkable Headache is resolved (4) MARCIE (acute kidney injury): Likely related to poor PO intake and recent NSAID use at home to treat headache. Hold losartan, noting one dose given in ER this evening. Additionally, she is receiving a loop diuretic in setting of possible developing pulmonary edema, which may worsen the creatinine. Could be secondary to dehydration and is complicated by use of INDY inhibitor Hold losartan for now-(restarted We will give a small amount of intravenous fluid and was advised to drink more fluid IV fluid has been discontinued due to fear of increasing blood pressure Advised to drink more fluid and monitor PRP tomorrow Her renal function has been normalized (5) Depression: Cont celexa per home regimen. (6) Pulmonary nodule: Repeat imaging as outpatient per guidelines. Has had extensive outpatient work-up including PET scan (7) Thyroid nodule: Incidental finding on imaging. Non-urgent thyroid us recommended as outpatient. (8) DVT prophylaxis: Heparin Full Code Dispo-to PCU Will be discharged home this afternoon Total Time Total Time Spent Total Time Spent (In Minutes): 35 minutes Discharge Plan Discharge Items Patient Disposition: Home - Self-Care Reason For Visit: HYPERTENSIVE URGENCY Discharge Diagnosis: Hypertensive urgency, hypoxia-resolved, headache, MARCIE-improved, history of pulmonary nodule with ongoing outpatient follow-up Condition on Discharge: Good Activity: Resume your previous activity Non-emergency contact: Primary Care Provider Call non-emergency contact if: you have any medication questions and your symptoms worsen Follow-up/Referrals: Stefanie Hammer DO [Primary Care Provider] - (Date & Time 12/16/2020 2:20 PM Provider Stefanie Hammer DO Department [facility] ) Diet: Heart Healthy and Low Sodium (2gm) Addtl Attending Provider Instructions: Please take your medications as directed Try to drink more fluid to avoid dehydration Please keep appointments with your primary care doctor and have follow-up of for your [id number] Your losartan dose has been decreased to 25 mg daily. Pending Studies at Discharge: No Stand-Alone Forms: My [facility] [employer], Smoking Cessation Medications and DC Order Prescriptions: New amlodipine [Norvasc] 5 mg Tablet 5 mg PO QAM Qty: 30 RF: 0 losartan 25 mg Tablet 25 mg PO QAM Qty: 30 RF: 0 Continued omega [id number]-fish oil [Fish Oil] 1,000 mg (120 mg-180 mg) Capsule 1 cap PO QAM RF: 0 citalopram [Celexa] 40 mg tablet 40 mg PO QAM RF: 0 Ibuprofen PM 200-38 mg Tablet 1 cap PO HS RF: 0 Changed losartan 50 mg tablet 25 mg PO DAILY Qty: 0 RF: 0 Discharge Orders: Discharge Order (Routine); Ordered 12/14/20 Ordered By: Kristin Helton/Other Patient Handouts: Controlling High Blood Pressure Admission Data Admit Date/Time: 12/11/20 23:51 Attending Provider: Kristin Renteria Admit Provider: Christine Storey Primary Care Provider: Stefanie Hammer Other Providers: Christine Storey ; Torsten Greenfield Other Interventions: Discharge Summary Assessment (RN) Last Done: 12/14/20 13:57
== END 2020-12-14 14:39 | disposition home or self-care (01) ==
LOC: ED 18:59 → 2N 18:59 → SUATTDRO 23:51 → 1E 12-12 05:47